=== PATIENT | female | born 1945 | race Caucasian/White ===

== ENCOUNTER 2023-05-17 09:16 | Day surgery (SDC) | payer MEDICARE, OTHER ==
[~2023-05-17 09:16] MED LIST: Ak-Dilate OPHTHALMIC*** 1.065 ML, Cyclogyl 1% OPHTH SOL 1.065 ML, GATIFLOXACIN 0.5% OPH... OP ONE; BETADINE 5% OPHTHALMIC 30 ML OP ONE; Lactated Ringers 1,000 ML IV SCH; NON-FORMULARY ITEM OP ONE; TETRACAINE 0.5% STERI-UNIT SOL OP ONE; cefUROXime sodium 0.005 GM in Sodium Chloride Flush 30 ML*** 0.5 ML IJ ONE
[2023-05-17] MEDS ORDERED: Epinephrine Preservative Free 1 MG/ML IJ ONE (09:17)
[2023-05-17] MEDS ORDERED: Lactated Ringers 1,000 ML IV SCH (10:00)
[2023-05-17] MEDS ORDERED: ACETAZOLAMIDE 250 MG TABLET PO ONE (11:00)
[2023-05-17] MEDS ORDERED: DIPRIVAN 200 MG/20 ML IV ONE (11:00)
[2023-05-17] MEDS ORDERED: Zofran 4 MG/2 ML VIAL IV PRN (11:00)
[2023-05-17] MEDS ORDERED: SUBLIMAZE 250 MCG/5 ML ONE (11:01)
[2023-05-17 11:26] VITALS: RESP 16; TEMP 98
[2023-05-17 11:32] VITALS: O2SAT 98
[2023-05-17 11:36] VITALS: BP 143/73; PULSE 74
== END 2023-05-17 11:50 | disposition home or self-care (01) ==
LOC: SDC 09:16
PROVIDERS: ATTEND Ophthalmology
DX: H25.812 Combined forms of age-related cataract, left eye (principal)
CPT/HCPCS: 99100; C1780; J0171; J2704; J3010; A9270-GY

== ENCOUNTER 2025-05-07 14:37 | Observation (INO) | payer MEDICARE, OTHER ==
[2025-05-07] MEDS ORDERED: TORAdol 30 mg Injection ONE (15:52)
[2025-05-07 15:54] LABS: BASOPHIL % 0.3 % (0.1-1.2); Basophil (Absolute #) 0.02 x10^3/uL (0.01-0.08); Eosinophil (Absolute #) 0.01 x10^3/uL (0.04-0.36); Hematocrit 35.0 % (34.1-44.9); Hemoglobin 11.0 g/dL (11.2-15.7); IMMATURE GRAN # 0.04 x10^3u/L (0.001-0.031); IMMATURE GRAN % 0.6 % (0.001-0.429); Lymphocyte (Absolute #) 0.45 x10^3/uL (1.18-3.74); Mean Corpuscular Hemoglobin 29.4 pg (25.6-32.2); Mean Corpuscular Hgb Concent. 31.4 g/dL (32.2-35.5); Monocyte (Absolute #) 0.40 x10^3/uL (0.24-0.86); NUCLEATED RBC # 0.00 x10^3u/L (0.00-0.012); NUCLEATED RBC % 0.0 % (0.00-0.2); Platelet Count 183 x10^3/uL (182-369); Red Blood Count 3.74 x10^6/uL (3.93-5.22); White Blood Count 7.1 x10^3/uL (3.98-10.04)
--- NOTE | 2025-05-07 15:54 | ERPHSYRPT ---
- History of Present Illness Time Seen by Provider: 05/07/25 15:49 Source: patient Exam Limitations: no limitations Patient Subjective Stated Complaint: pt c/o of seeping lower left leg and right leg starting to swell Triage Nursing Assessment: t was brought to the ER by a friend, tachycardic, denies pain while laying but if touched it is an 8/10, pulses normal, skin n/w/d, this happened last year and had went to the wound center and it healed, denies chest pain, no SOB, doesn't appear to be in any distress Physician History: Patient is a 79-year-old female history of hypertension with a chronic left lower extremity wound presents to our ED for pain to the left lower extremity. Patient states the contralateral side, right lower extremity is at its baseline. Pain rated 8 out of 10. Patient goes to the wound center for left lower extremity chronic wound. She takes aspirin daily. She is not on blood thinners. No chest pain or shortness of breath. No nausea vomiting or diaphoresis. Patient voices no other complaints or concerns at this time. Portions of this note were created with voice recognition technology. There may be grammatical, spelling, punctuation or sound alike errors Timing/Duration: today Severity: moderate Modifying Factors: Improves With: nothing Associated Symptoms: denies symptoms Allergies/Adverse Reactions: No Known Drug Allergies Allergy (Verified 05/07/25 15:02) Home Medications: Dapagliflozin Propanediol [Farxiga] 10 mg PO DAILY 05/07/25 [History] Sacubitril/Valsartan [Entresto 49 mg-51 mg Tablet] 1 tab PO BID 05/07/25 [History] Hx Influenza Vaccination/Date Given: Yes Hx Pneumococcal Vaccination/Date Given: Yes Travel Risk - International Travel Have you traveled outside of the country in past 3 weeks: No - Emerging Infectious Disease Are you exhibiting symptoms associated with any current EIDs: No - Review of Systems All Other Systems: Reviewed and Negative - Past Medical History Pertinent Past Medical History: Yes Cardiac History: Hypertension Other Medical History: swelling legs - Past Surgical History Past Surgical History: Yes Musculoskeletal: Joint Replacement Female Surgical History: Hysterectomy Other Surgical History: right hip replaced - Social History Smoking Status: Former smoker Exposure to second hand smoke: No Drug Use: none - Social Determinants of Health Will the patient participate in the screening: Yes Do you worry about a steady place to live?: No Do you have any problems with any of the following?: No known problems In the past 12 months,have you had to go without utilities?: No Transportation Issues: No Has anyone in your support network made you feel unsafe?: No Have you or anyone in your house had to go w/o enough food: No - Nursing Vital Signs Nursing Vital Signs: Initial Vital Signs Temperature 99.0 F 05/07/25 14:57 Pulse Rate 121 H 05/07/25 14:57 Blood Pressure 132/91 05/07/25 14:57 O2 Sat by Pulse Oximetry 98 05/07/25 14:57 Pain Scale Pain Intensity 10 - Physical Exam General Appearance: no apparent distress, alert Eye Exam: PERRL/EOMI, eyes nml inspection Ears, Nose, Throat Exam: normal ENT inspection, moist mucous membranes Neck Exam: normal inspection, full range of motion Respiratory Exam: normal breath sounds, lungs clear, airway intact, No respiratory distress Cardiovascular Exam: regular rate/rhythm, normal heart sounds, normal peripheral pulses Gastrointestinal/Abdomen Exam: soft, normal bowel sounds, No tenderness, No mass Back Exam: normal inspection, normal range of motion, No CVA tenderness, No vertebral tenderness Extremity Exam: normal inspection, normal range of motion, pelvis stable, other (Left lower extremity is swollen. Positive Homans' sign left lower extremity. There is associated cellulitis and some bruising. No trauma. The involved extremities neurovasc intact distally compartments are soft cap refill less than 2 seconds.) Neurologic Exam: alert, oriented x 3, cooperative, normal mood/affect, sensation nml, No motor deficits Skin Exam: normal color, warm, dry, No rash Lymphatic Exam: No adenopathy SpO2 Interpretation: normal SpO2: 98 O2 Delivery: Room Air - Course Nursing assessment & vital signs reviewed: Yes EKG Interpreted by Me: RATE (113), A-fib - Radiology Ultrasound Exam Venous Lower Extremity Ultrasound: discussed w/radiologist (Research And Development Director ultrasound left lower extremity negative for DVT) Ordered Tests: Active Orders 24 hr Category Date Time Status Up With Assistance ROUTINE Activity 05/07/25 18:12 Active Call Admit Doctor for Orders ON ADMISSION Care 05/07/25 18:12 Active Cardiovascular Tech ROUTINE Care 05/07/25 18:12 Active Code Status Order ROUTINE Care 05/07/25 18:12 Active IV Insertion STAT Care 05/07/25 15:46 Completed Neuro Checks Q4H Care 05/07/25 18:[address] in Observation ROUTINE Care 05/07/25 18:12 Active Telemetry q6h Care 05/07/25 18:12 Active Telemetry q6h Care 05/07/25 18:12 Completed Consistent Carbohydrate Diet 1800 Calorie Diet 05/07/25 Dinner Active LOWER LEG Stat Exams 05/07/25 15:48 Completed VENOUS UNILAT/LIMITED EXTREMIT [US] Stat Exams 05/07/25 15:45 Completed BLOOD CULTURE Stat Lab 05/07/25 17:10 Received CBC W DIFF Stat Lab 05/07/25 15:46 Completed CMP Stat Lab 05/07/25 15:50 Completed CULTURE,URINE Stat Lab 05/07/25 19:30 Received NT PRO BNPII Stat Lab 05/07/25 15:46 Completed TROPONIN Q4H Lab 05/07/25 15:46 Completed TROPONIN Q4H Lab 05/07/25 21:10 Completed TROPONIN Q4H Lab 05/08/25 01:00 Ordered UA W/RFX UR CULTURE Stat Lab 05/07/25 19:30 Completed Pulse Oximetry CONTINUOUS RT 05/07/25 18:12 Completed Transfer Order Routine Transfer 05/07/25 Completed Medication Summary Generic Name Dose Route Start Last Admin Trade Name Freq PRN Reason Stop Dose Admin Acetaminophen 650 mg 05/07/25 18:27 Acetaminophen 325 Mg Tablet PO 06/06/25 18:26 Q4H PRN PRN PAIN, FEVER, HEADACHE Apixaban 5 mg 05/08/25 10:00 Apixaban 2.5 Mg Tablet PO 06/07/25 09:59 BID JOSIAH Metoprolol Tartrate 25 mg 05/07/25 18:27 05/07/25 20:14 Metoprolol Tartrate 25 Mg Tab PO 06/06/25 18:26 25 mg BID JOSIAH Administration Non-Formulary Medication 1 each 05/07/25 18:30 Pharmacy Dose Request: Vancomycin 1 Each IV 06/06/25 18:29 ONCALLTOOR JOSIAH Non-Formulary Medication 1 each 05/07/25 18:27 Pharmacy Dosing Request [facility] 05/07/25 18:28 STAT ONE Non-Formulary Medication 10 mg 05/08/25 10:00 Dapagliflozin Propanediol [Farxiga] PO 06/07/25 09:59 DAILY JOSIAH Ondansetron HCl 4 mg 05/07/25 18:27 Ondansetron Hcl 4 Mg/2 Ml Vial IV 06/06/25 18:26 Q6H PRN PRN NAUSEA/VOMITING Sacubitril/Valsartan tablet 05/07/25 22:00 Sacubitril/Valsartan 1 Tablet Tablet PO 06/06/25 21:59 BID JOSIAH Discontinued Medications Generic Name Dose Route Start Last Admin Trade Name Freq PRN Reason Stop Dose Admin Enoxaparin Sodium 60 mg 05/07/25 16:54 05/07/25 17:14 Enoxaparin Sodium 60 Mg/0.6 Ml Syringe SQ 05/07/25 16:55 60 mg STAT ONE Administration Enoxaparin Sodium Confirm 05/07/25 17:05 Enoxaparin Sodium 80 Mg/0.8 Ml Syringe Administered 05/07/25 17:06 Dose 80 mg SQ .STK-MED ONE Enoxaparin Sodium 40 mg 05/08/25 10:00 Enoxaparin Sodium 40 Mg/0.4 Ml Syringe SQ 06/07/25 09:59 DAILY JOSIAH Vancomycin HCl 1 gm in 200 mls @ 125 mls/hr 05/07/25 16:53 05/07/25 20:14 Vancomycin 1 Gram/200 Ml Bag IV 05/07/25 18:28 125 mls/hr STAT ONE Administration Piperacillin Sod/Tazobactam 100 mls @ 200 mls/hr 05/07/25 16:53 05/07/25 17:14 Sod 3.375 gm/ Sodium Chloride IV 05/07/25 17:22 200 mls/hr STAT STA 200 mls/hr Administration Sodium Chloride Confirm 05/07/25 17:05 Sodium Chloride 0.9% Administered 05/07/25 17:06 Dose 100 mls @ ud .ROUTE .STK-MED ONE Ketorolac Tromethamine 30 mg 05/07/25 15:46 05/07/25 15:55 Ketorolac Tromethamine 30 Mg/Ml Inj IV 05/07/25 15:47 30 mg STAT ONE Administration Ketorolac Tromethamine Confirm 05/07/25 15:52 Ketorolac Tromethamine 30 Mg/Ml Inj Administered 05/07/25 15:53 Dose 30 mg .ROUTE .STK-MED ONE Piperacillin Sod/Tazobactam Sod Confirm 05/07/25 17:05 Piperacillin/Tazobactam Sodium 3.375 Gm Vial Administered 05/07/25 17:06 Dose 3.375 gm IV .STK-MED ONE Lab/Rad Data: Laboratory Result Diagrams 05/07/25 15:46 05/07/25 15:50 Laboratory Results 05/07/25 05/07/25 05/07/25 Range/Units 15:50 15:46 15:46 WBC (3.98-10.04) x10^3/uL RBC (3.93-5.22) x10^6/uL Hgb (11.2-15.7) g/dL Hct (34.1-44.9) % MCV (79.4-94.8) fL MCH (25.6-32.2) pg MCHC (32.2-35.5) g/dL RDW (11.7-14.4) % Plt Count (182-369) x10^3/uL MPV (9.4-12.3) fL Gran % (34.0-71.1) % Immature Gran % (Auto) (0.001-0.429) % Nucleat RBC Rel Count (0.00-0.2) % Eos # (Auto) (0.04-0.36) x10^3/uL Immature Gran # (Auto) (0.001-0.031) x10^3u/L Absolute Lymphs (auto) (1.18-3.74) x10^3/uL Absolute Monos (auto) (0.24-0.86) x10^3/uL Absolute Nucleated RBC (0.00-0.012) x10^3u/L Lymphocytes % (19.3-51.7) % Monocytes % (4.7-12.5) % Eosinophils % (0.7-5.8) % Basophils % (0.1-1.2) % Absolute Granulocytes (1.56-6.13) x10^3/uL Basophils # (0.01-0.08) x10^3/uL Sodium 136 (135-145) mmol/L Potassium 4.6 (3.5-5.1) mmol/L Chloride 105 (98-107) mmol/L Carbon Dioxide 18 L (22-30) mmol/L Anion Gap 17.5 H (5-15) MEQ/L BUN 20 H (7-17) mg/dL Creatinine 1.10 H (0.52-1.04) mg/dL Estimated GFR 51.8 ML/MIN Glucose 110 H (74-106) mg/dL Calcium 10.0 (8.4-10.2) mg/dL Magnesium 1.7 (1.6-2.3) mg/dL Total Bilirubin 0.80 (0.2-1.3) mg/dL AST 26 (14-36) U/L ALT 15 (0-35) U/L Alkaline Phosphatase 42 (38-126) U/L Troponin I (0.000-0.033) ng/mL NT-Pro-B Natriuret Pep (<300) pg/mL Serum Total Protein 7.0 (6.3-8.2) g/dL Albumin 4.3 (3.5-5.0) g/dL TSH 3rd Generation 1.032 (0.470-4.680) mIU/L Slides for Path Review 05/07/25 05/07/25 Range/Units 15:46 15:46 WBC 7.1 (3.98-10.04) x10^3/uL RBC 3.74 L (3.93-5.22) x10^6/uL Hgb 11.0 L (11.2-15.7) g/dL Hct 35.0 (34.1-44.9) % MCV 93.6 (79.4-94.8) fL MCH 29.4 (25.6-32.2) pg MCHC 31.4 L (32.2-35.5) g/dL RDW 15.9 H (11.7-14.4) % Plt Count 183 (182-369) x10^3/uL MPV 11.4 (9.4-12.3) fL Gran % 87.1 H (34.0-71.1) % Immature Gran % (Auto) 0.6 H (0.001-0.429) % Nucleat RBC Rel Count 0.0 (0.00-0.2) % Eos # (Auto) 0.01 L (0.04-0.36) x10^3/uL Immature Gran # (Auto) 0.04 H (0.001-0.031) x10^3u/L Absolute Lymphs (auto) 0.45 L (1.18-3.74) x10^3/uL Absolute Monos (auto) 0.40 (0.24-0.86) x10^3/uL Absolute Nucleated RBC 0.00 (0.00-0.012) x10^3u/L Lymphocytes % 6.3 L (19.3-51.7) % Monocytes % 5.6 (4.7-12.5) % Eosinophils % 0.1 L (0.7-5.8) % Basophils % 0.3 (0.1-1.2) % Absolute Granulocytes 6.20 H (1.56-6.13) x10^3/uL Basophils # 0.02 (0.01-0.08) x10^3/uL Sodium (135-145) mmol/L Potassium (3.5-5.1) mmol/L Chloride (98-107) mmol/L Carbon Dioxide (22-30) mmol/L Anion Gap (5-15) MEQ/L BUN (7-17) mg/dL Creatinine (0.52-1.04) mg/dL Estimated GFR ML/MIN Glucose (74-106) mg/dL Calcium (8.4-10.2) mg/dL Magnesium (1.6-2.3) mg/dL Total Bilirubin (0.2-1.3) mg/dL AST (14-36) U/L ALT (0-35) U/L Alkaline Phosphatase (38-126) U/L Troponin I 0.014 (0.000-0.033) ng/mL NT-Pro-B Natriuret Pep 33750 (<300) pg/mL Serum Total Protein (6.3-8.2) g/dL Albumin (3.5-5.0) g/dL TSH 3rd Generation (0.470-4.680) mIU/L Slides for Path Review YES - Progress Progress: improved Progress Note: Patient is a 79-year-old female history of hypertension with a chronic left lower extremity wound presents to our ED for pain to the left lower extremity. Patient states the contralateral side, right lower extremity is at its baseline. Pain rated 8 out of 10. Patient goes to the wound center for left lower extremity chronic wound. She takes aspirin daily. She is not on blood thinners. No chest pain or shortness of breath. No nausea vomiting or diaphoresis Physical exam reveals cellulitis left lower extremity with associated chronic wound. The wounds appear to be venous stasis ulcers. There is some associated bruising. The involved extremities neurovasc intact distally compartments are soft cap refill less than 2 seconds. No chest pain. However in light of the leg swelling EKG was performed. A-fib was observed on EKG with a rate of 113. Patient does not have a history of A-fib. Lovenox ordered and administered for the A-fib. Left lower extremity cellulitis. Vancomycin and Zosyn administered. Patient was on oral antibiotics within the past 3 months for a left lower extremity infection. UTI. History obtained from patient and a family friend who is at the bedside. Differential diagnosis includes cellulitis, DVT, trauma X-ray of the left lower extremity reviewed and interpreted by Dr. Ibarra. No acute pathology observed. This is a preliminary read. Formal read pending. Patient will require hospitalization for further evaluation and treatment. Plan of care discussed with patient. Patient agrees to admission to [facility] for further evaluation and treatment. Portions of this note were created with voice recognition technology. There may be grammatical, spelling, punctuation or sound alike errors Complexity of problems addressed is moderate acute complicated. No critical care time. Complexity of data reviewed and analyzed is extensive. Test ordered chest reviewed results analyzed and correlated clinically with history and physical exam. Management discussed with hospitalist who accepts admission to observation. Risk of complication and or risk of morbidity/mortality of patient management is high. Patient requires hospitalization for further evaluation and treatment. Vital stable. Time spent admit patient is approximately 20 minutes. Plan of care established for shared decision making. No social determinants of health present to impede follow-up. Portions of this note were created with voice recognition technology. There may be grammatical, spelling, punctuation or sound alike errors 05/07/25 17:[address] Andrade at 5:05 PM. 05/07/25 17:05 Counseled pt/family regarding: lab results, diagnosis, rad results - Departure Departure Disposition: Observation Clinical Impression: Atrial fibrillation, Cellulitis, Leg pain, UTI (urinary tract infection) Condition: Stable Critical Care Time: No
[2025-05-07] MEDS: TORAdol 30 mg Injection IV ONE (15:55)
[2025-05-07 16:00] LABS: Calcium 10.0 mg/dL (8.4-10.2); Carbon Dioxide 18.0 mmol/L (22-30); Creatinine 1 1.1 mg/dL (0.52-1.04); EST GLOMERULAR FILTRATION RATE 51.8 ML/MIN; Glucose 110.0 mg/dL (74-106); Potassium 4.6 mmol/L (3.5-5.1); SGOT/AST 26.0 U/L (14-36); SGPT/ALT 15.0 U/L (0-35); Total Protein 7.0 g/dL (6.3-8.2)
[2025-05-07] MEDS ORDERED: ENOXAPARIN SODIUM SQ ONE (17:05)
[2025-05-07] MEDS ORDERED: PIPERACILLIN/TAZOBACTAM IV ONE (17:05)
[2025-05-07] MEDS: ENOXAPARIN SODIUM SQ ONE (17:14)
[2025-05-07 17:22] LABS: NT PRO BNPII 12300.0 pg/mL (<300); TROPONIN 0.014 ng/mL (0.000-0.033)
--- NOTE | 2025-05-07 17:33 | XRAY ---
Indication: Left leg pain. Two-dimensional sonogram and color Doppler imaging major venous vessels left leg performed. Comparison: None No thrombus seen in the visualized deep venous vessels left leg including greater saphenous vein. Veins demonstrate normal compressibility. Venous waveforms are normal with and without augmentation. Impression: Left leg negative for venous thrombosis. Comment: Preliminary report was given.
--- NOTE | 2025-05-07 17:41 | XRAY ---
CLINICAL HISTORY: pain COMPARISON: None. TECHNIQUE: X-ray images of the left tibia and fibula were obtained in AP (anteroposterior) and lateral projections. FINDINGS: Bone: The visualized tibia and fibula are intact. No evidence of fracture or dislocation. No focal bone lesions are identified. Reduced bone density. Large plantar calcaneal spur. 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 Osteoarthritis changes involve the knee joint. Mild degenerative changes involving the ankle joint. Foci of calcifications are also seen in the soft tissues around the medial malleolus, likely vascular. Soft Tissue: Atherosclerotic linear vascular calcifications are noted Foci of calcification are present in the soft tissues, likely vascular as well. Mild soft tissue swelling is present around the ankle joint. IMPRESSION: 1. No acute fracture or dislocation is seen. 2. Diffuse osteopenia. 3. Osteoarthritis changes involve the knee joint, ankle, and intertarsal joints. 4. Large plantar calcaneal spur. Disclaimer: A subtle bone abnormality or fracture may not be readily apparent on X-rays; thus, clinical correlation and further imaging, including follow-up CT, MRI, or follow-up X-rays, are advised as needed. Electronically Signed by: Jigar Durant MD. (05/07/2025 17:40:36 EST)
--- NOTE | 2025-05-07 18:10 | PCM.HP ---
History of Present Illness - Chief Complaint Chief Complaint: cellulitis/afib Date: 05/07/25 History of Present Illness: is a 79 year old female with a pmhx of HTN, cardiomyopathy, chronic back pain, chf, MT, and chronic wounds to the LLE (currently treated at [facility]) last treatment three weeks prior to presentation. She reports missing recent wound appointments due to the of her during the week of . She completed a course of doxycycline on April 02 without improvement and now presents with worsening pain, swelling, purulent drainage, and erythema of the left lower extremity. She reports associated chill s but denies chest pain, shortness of breath, or palpitations. Patient follows OP with Dr. sEtrada. She states her last echocardiogram was approximately one year ago. On arrival vitals showed a heart rate of 121; EKG showed atrial fibrillation with ventricular rate approximately 113. Telemetry currently shows atrial fibrillation with heart rate ranging [id number]. Exam reveals open wounds to the medial, lateral, and anterior jj of the left lower extremity with surrounding erythema, purulent drainage, significant tenderness to palpation, and 2+ pitting edema. The right lower extremity has 1+ pitting edema. Venous Doppler of the left lower extremity is preliminarily reported as negative for DVT. Left leg X- ray shows no acute abnormality on preliminary read. Labs notable for hemoglobin 11, carbon dioxide 18 with anion gap 17.5, BUN 20, creatinine 1.10 with unknown baseline, BNP 12,300, and normal initial troponin. She received vancomycin, Zosyn, and Lovenox in the emergency department. Cardiology (Dr. Estrada) recommended repeat echocardiogram. She is admitted for management of recurrent infected left lower extremity wounds and atrial fibrillation. - Review of Systems Constitutional: Chills, Weakness Eyes: No Symptoms Ears, Nose, & Throat: No Symptoms Respiratory: No Symptoms Cardiac: Edema (BLE L>R 2+/1+ pitting) Abdominal/Gastrointestinal: No Symptoms Genitourinary Symptoms: No Symptoms Musculoskeletal: Back Pain (chronic) Skin: Cellulitis, Skin Lesions Neurological: No Symptoms Psychological: No Symptoms Endocrine: No Symptoms Hematologic/Lymphatic: No Symptoms Immunological/Allergic: No Symptoms Medications & Allergies Home Medications: Home Medication List Dapagliflozin Propanediol [Farxiga] 10 mg PO DAILY 05/07/25 [History Confirmed 05/07/25] Sacubitril/Valsartan [Entresto 49 mg-51 mg Tablet] 1 tab PO BID 05/07/25 [History Confirmed 05/07/25] Allergies/Adverse Reactions: Allergies Allergy/AdvReac Type Severity Reaction Status Date / Time No Known Drug Allergies Allergy Verified 05/07/25 15:02 - Past Medical History Past Medical History: Yes Cardiac History: Hypertension Comment: swelling legs - Past Surgical History Past Surgical History: Yes Musculskeletal Surgical Hx: Joint Replacement Female Surgical History: Hysterectomy Other Surgical History: right hip replaced Significant Family History: cancer, diabetes - Social History Smoking Status: Former smoker Exposure to second hand smoke: No Alcohol: None Drug Use: none - Social Determinants of Health Will the patient participate in the screening: Yes Do you worry about a steady place to live?: No Do you have any problems with any of the following?: No known problems In the past 12 months,have you had to go without utilities?: No Have you or anyone in your house had to go without enough: No Transportation Issues: No Has anyone in your support network made you feel unsafe?: No - Physical Exam Vital Signs: Vital Signs - 24 hr Temp Pulse BP BP Pulse Ox 05/07/25 17:21 98 05/07/25 17:14 95 05/07/25 17:00 96 05/07/25 16:50 97 05/07/25 16:40 96 05/07/25 16:32 99 05/07/25 16:00 134/69 97 05/07/25 15:30 135/96 72 L 05/07/25 15:00 127/87 98 05/07/25 14:57 99.0 F 121 H 132/91 98 General Appearance: no apparent distress Neurologic Exam: alert, oriented x 3, cooperative Eye Exam: PERRL/EOMI Ears, Nose, Throat Exam: normal ENT inspection Neck Exam: normal inspection Respiratory Exam: normal breath sounds, lungs clear Cardiovascular Exam: irregular Pelvic Exam: not done Rectal Exam: deferred Extremity Exam: swelling (BLE L>R 2+/1+ pitting), tenderness (BLE) Skin Exam: other (LLE with multiple open wounds medial/lateral with surrounding erythema, drainage) Results - Labs Lab/Micro Results: Lab Results-Last 24 Hours 05/07/25 05/07/25 05/07/25 Range/Units 15:46 15:46 15:50 WBC 7.1 (3.98-10.04) x10^3/uL RBC 3.74 L (3.93-5.22) x10^6/uL Hgb 11.0 L (11.2-15.7) g/dL Hct 35.0 (34.1-44.9) % MCV 93.6 (79.4-94.8) fL MCH 29.4 (25.6-32.2) pg MCHC 31.4 L (32.2-35.5) g/dL RDW 15.9 H (11.7-14.4) % Plt Count 183 (182-369) x10^3/uL MPV 11.4 (9.4-12.3) fL Gran % 87.1 H (34.0-71.1) % Immature Gran % (Auto) 0.6 H (0.001-0.429) % Nucleat RBC Rel Count 0.0 (0.00-0.2) % Eos # (Auto) 0.01 L (0.04-0.36) x10^3/uL Immature Gran # (Auto) 0.04 H (0.001-0.031) x10^3u/L Absolute Lymphs (auto) 0.45 L (1.18-3.74) x10^3/uL Absolute Monos (auto) 0.40 (0.24-0.86) x10^3/uL Absolute Nucleated RBC 0.00 (0.00-0.012) x10^3u/L Lymphocytes % 6.3 L (19.3-51.7) % Monocytes % 5.6 (4.7-12.5) % Eosinophils % 0.1 L (0.7-5.8) % Basophils % 0.3 (0.1-1.2) % Absolute Granulocytes 6.20 H (1.56-6.13) x10^3/uL Basophils # 0.02 (0.01-0.08) x10^3/uL Sodium 136 (135-145) mmol/L Potassium 4.6 (3.5-5.1) mmol/L Chloride 105 (98-107) mmol/L Carbon Dioxide 18 L (22-30) mmol/L Anion Gap 17.5 H (5-15) MEQ/L BUN 20 H (7-17) mg/dL Creatinine 1.10 H (0.52-1.04) mg/dL Estimated GFR 51.8 ML/MIN Glucose 110 H (74-106) mg/dL Calcium 10.0 (8.4-10.2) mg/dL Total Bilirubin 0.80 (0.2-1.3) mg/dL AST 26 (14-36) U/L ALT 15 (0-35) U/L Alkaline Phosphatase 42 (38-126) U/L Troponin I 0.014 (0.000-0.033) ng/mL NT-Pro-B Natriuret Pep 88759 (<300) pg/mL Serum Total Protein 7.0 (6.3-8.2) g/dL Albumin 4.3 (3.5-5.0) g/dL - Radiology Impressions Radiology Exams & Impressions: Radiology Procedures Category Date Time Status ECHO W/2D AND DOPPLER [US] Urgent Exams 05/08/25 10:00 Ordered LOWER LEG Stat Exams 05/07/25 15:48 Taken VENOUS UNILAT/LIMITED EXTREMIT [US] Stat Exams 05/07/25 15:45 Taken Assessment/Plan (1) Cellulitis Current Visit: Yes Status: Acute Assessment & Plan: -Continue IV vancomycin and Zosyn. -Obtain blood and wound cultures if not already collected. -Daily wound assessment; document size, drainage, and erythema. -Formal read of ultrasound and X-ray pending. -Podiatry consult -Strict leg elevation. -Case management for re-establishing wound center follow-up at discharge. -Prior doxycycline failure supports need for IV therapy -[facility] Code(s): L03.90 - CELLULITIS, UNSPECIFIED (2) Atrial fibrillation Current Visit: Yes Status: Acute Assessment & Plan: -New onset -Telemetry monitoring - current HR < 110 -Rate control with metoprolol 25mg bid -Cardiology consult -Continue therapeutic anticoagulation with Lovenox; plan transition to Eliquis pending cardiology recommendations. -Treat infection as driver material handler of RVR. -Await echocardiogram for further management guidance Code(s): I48.91 - UNSPECIFIED ATRIAL FIBRILLATION (3) HTN (hypertension) Current Visit: Yes Status: Acute Assessment & Plan: -Continue home regimen as tolerated. Code(s): I10 - ESSENTIAL (PRIMARY) HYPERTENSION (4) Cardiomyopathy Current Visit: Yes Status: Acute Assessment & Plan: -Echo ordered [place] [address] -Continue Entresto -Cardiology consulted appreciate recs -Monitor for volume overload. -Daily weights and intake/output. Code(s): I42.9 - CARDIOMYOPATHY, UNSPECIFIED (5) Normocytic anemia Current Visit: Yes Status: Acute Assessment & Plan: -Hgb stable at 11-Trend -Iron studies Code(s): D64.9 - ANEMIA, UNSPECIFIED (6) Bilateral leg edema Current Visit: Yes Status: Acute Assessment & Plan: -Monitor volume status closely given markedly elevated BNP and cardiomyopathy. -Daily weights, strict I&O, ongoing assessment of respiratory status. -Consider gentle diuresis -Podiatry consulted -Venous doppler pre-valle negative- final read pending -Continue treatment of left leg infection to address inflammatory contributors to edema. -Elevate both lower extremities VTE: lovenox PPI: Protonix Dispo: 1-3 days Code status: Full code Plan of care time spent > 45 mins Code(s): R60.0 - LOCALIZED EDEMA (7) Increased anion gap metabolic acidosis Current Visit: Yes Status: Acute Code(s): E87.29 - OTHER ACIDOSIS (8) HAYDEE (acute kidney injury) Current Visit: Yes Status: Acute Code(s): N17.9 - ACUTE KIDNEY FAILURE, UNSPECIFIED Telemedicine Encounter - Telemedicine Encounter Telemedicine Encounter: "The entirety of this encounter was performed via Telemedicine" This visit was performed using real-time audio and video connection between my location and thepatients locationwith the assistance of a surrogateat the patients location. Written or verbal consent was obtained from the patient/guardian to perform this visit usinguofl [facility]See[facility] Interactivest. [facility] and health centerUgurucine technology. Any patient questions regarding the telemedicine interaction were answered.
[2025-05-07] MEDS ORDERED: PHARMACY RENAL DOSING MC ONE (18:27)
[2025-05-07] MEDS ORDERED: TYLENOL 325 MG PO PRN (18:27)
[2025-05-07] MEDS ORDERED: Zofran 4 MG/2 ML VIAL IV PRN (18:27)
[2025-05-07] MEDS ORDERED: PHARMACY DOSING REQUIRED: VANCOMYCIN IV SCH (18:30)
[2025-05-07 19:23] LABS: Slide Review 1 YES
--- NOTE | 2025-05-07 19:35 | XRAY ---
Indication: Short of breath. Comparison: January 10, 2024 Portable chest inflated and remains clear. Heart now enlarged again with mitral valve calcifications. Bony thorax intact again with osteopenia, degenerative changes, and mild dextroscoliosis. Impression: New cardiomegaly. Negative for acute pneumonic process or CHF.
[2025-05-07 19:38] LABS: Glucose, Urine 500 mg/dL (Negative); Protein,Urine Dip Negative (Negative); RBC 0-2 /HPF (0-5); WBC 0-2 /HPF (0-5)
[2025-05-07] MEDS: VANCOMYCIN 1 GRAM/200 ML BAG 1 GM/200 ML PIGGYBACK IV ONE (20:14)
[2025-05-07] MEDS: Lopressor 25MG Tab PO SCH (20:14)
[2025-05-08 02:22] LABS: BASOPHIL % 0.2 % (0.1-1.2); Basophil (Absolute #) 0.01 x10^3/uL (0.01-0.08); Eosinophil (Absolute #) 0.05 x10^3/uL (0.04-0.36); Hematocrit 30.8 % (34.1-44.9); Hemoglobin 9.6 g/dL (11.2-15.7); IMMATURE GRAN # 0.01 x10^3u/L (0.001-0.031); IMMATURE GRAN % 0.2 % (0.001-0.429); Lymphocyte (Absolute #) 0.61 x10^3/uL (1.18-3.74); Mean Corpuscular Hemoglobin 29.4 pg (25.6-32.2); Mean Corpuscular Hgb Concent. 31.2 g/dL (32.2-35.5); Monocyte (Absolute #) 0.41 x10^3/uL (0.24-0.86); NUCLEATED RBC # 0.00 x10^3u/L (0.00-0.012); NUCLEATED RBC % 0.0 % (0.00-0.2); Platelet Count 142 x10^3/uL (182-369); Red Blood Count 3.27 x10^6/uL (3.93-5.22); White Blood Count 4.3 x10^3/uL (3.98-10.04)
[2025-05-08 02:33] LABS: Calcium 9.1 mg/dL (8.4-10.2); Carbon Dioxide 18.0 mmol/L (22-30); Creatinine 1 1.16 mg/dL (0.52-1.04); EST GLOMERULAR FILTRATION RATE 48.6 ML/MIN; Glucose 129.0 mg/dL (74-106); Potassium 4.0 mmol/L (3.5-5.1); SGOT/AST 25.0 U/L (14-36); SGPT/ALT 13.0 U/L (0-35); Total Protein 6.0 g/dL (6.3-8.2)
--- NOTE | 2025-05-08 05:07 | PCM.NOTE ---
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 She reports missing recent wound appointments due to the of her during the week of . She completed a course of doxycycline on April 02 without improvement and now presents with worsening pain, swelling, purulent drainage, and erythema of the left lower extremity. She reports associated chills but denies chest pain, shortness of breath, or palpitations. Patient follows OP with Dr. Estrada. She states her last echocardiogram was approximately one year ago. On arrival vitals showed a heart rate of 121; EKG showed atrial fibrillation with ventricular rate approximately 113. Telemetry currently shows atrial fibrillation with heart rate ranging [id number]. Exam reveals open wounds to the medial, lateral, and anterior jj of the left lower extremity with surrounding erythema, purulent drainage, significant tenderness to palpation, and 2+ pitting edema. The right lower extremity has 1+ pitting edema. Venous Doppler of the left lower extremity is preliminarily reported as negative for DVT. Left leg X- ray shows no acute abnormality on preliminary read. Labs notable for hemoglobin 11, carbon dioxide 18 with anion gap 17.5, BUN 20, creatinine 1.10 with unknown baseline, BNP 12,300, and normal initial troponin. She received vancomycin, Zosyn, and Lovenox in the emergency department. Cardiology (Dr. Estrada) recommended repeat echocardiogram. She is admitted for management of recurrent infected left lower extremity wounds and atrial fibrillation. 05/08/25: Patient seen at bedside. Reports improvement in left lower extremity pain since compression dressing placed by podiatry. Denies chest pain, dyspnea, palpitations, dizziness, or syncope. Endorses generalized fatigue. No fevers overnight. Expresses emotional distress related to recent of , which contributed to missed wound care follow-ups. Cardiology consult and echo results pending. Continue vanc/zosyn for now pending culture results. Urine culture with Gram - ID, sensitivity pending. - Review of Systems Constitutional: No Symptoms Eyes: No Symptoms Ears, Nose, & Throat: No Symptoms Respiratory: No Symptoms Cardiac: Edema (RLE +1 LLE +2- compression dressing ) Abdominal/Gastrointestinal: No Symptoms Genitourinary Symptoms: No Symptoms Musculoskeletal: No Symptoms Skin: Cellulitis, Skin Lesions Neurological: No Symptoms Psychological: No Symptoms Endocrine: No Symptoms Hematologic/Lymphatic: No Symptoms Immunological/Allergic: No Symptoms Objective Exam General Appearance: no apparent distress Neurologic Exam: alert, oriented x 3, cooperative Skin Exam: other (LLE with compression dressing) Eye Exam: PERRL Ears, Nose, Throat Exam: normal ENT inspection Neck Exam: normal inspection Respiratory Exam: normal breath sounds, lungs clear Cardiovascular Exam: regular rate/rhythm, normal heart sounds Gastrointestinal/Abdomen Exam: soft, normal bowel sounds Extremity Exam: swelling (RLE +1 pitting edema LLE with compression dressing) Back Exam: normal inspection Pelvic Exam: deferred Rectal Exam: deferred Objective Data Vital Signs: Vital Signs - 24 hr Temp Pulse Resp BP BP Pulse Ox 05/08/25 03:00 97.9 F 87 16 97/56 94 L 05/07/25 23:25 98 05/07/25 23:00 99.0 F 80 16 98/54 95 05/07/25 20:00 98 H 05/07/25 19:41 98.7 F 113 H 18 128/70 97 05/07/25 18:21 98.7 F 113 H 18 128/70 97 05/07/25 17:14 95 05/07/25 17:00 96 05/07/25 16:50 97 05/07/25 16:40 96 05/07/25 16:32 99 05/07/25 16:00 134/69 97 05/07/25 15:30 135/96 72 L 05/07/25 15:00 127/87 98 05/07/25 14:57 99.0 F 121 H 132/91 98 Pain Assessment - Last Documented Pain Intensity 3 Pain Scale Used 0-10 Pain Scale Intake and Output: Intake & Output 05/05/25 05/06/25 05/07/25 05/08/25 11:59 11:59 11:59 11:59 Output Total 200 Balance -200 Weight 175 kg Lab Results: Lab Results-Last 24 Hours 05/07/25 05/07/25 05/07/25 Range/Units 15:46 15:46 15:46 WBC 7.1 (3.98-10.04) x10^3/uL RBC 3.74 L (3.93-5.22) x10^6/uL Hgb 11.0 L (11.2-15.7) g/dL Hct 35.0 (34.1-44.9) % MCV 93.6 (79.4-94.8) fL MCH 29.4 (25.6-32.2) pg MCHC 31.4 L (32.2-35.5) g/dL RDW 15.9 H (11.7-14.4) % Plt Count 183 (182-369) x10^3/uL MPV 11.4 (9.4-12.3) fL Gran % 87.1 H (34.0-71.1) % Immature Gran % (Auto) 0.6 H (0.001-0.429) % Nucleat RBC Rel Count 0.0 (0.00-0.2) % Eos # (Auto) 0.01 L (0.04-0.36) x10^3/uL Immature Gran # (Auto) 0.04 H (0.001-0.031) x10^3u/L Absolute Lymphs (auto) 0.45 L (1.18-3.74) x10^3/uL Absolute Monos (auto) 0.40 (0.24-0.86) x10^3/uL Absolute Nucleated RBC 0.00 (0.00-0.012) x10^3u/L Lymphocytes % 6.3 L (19.3-51.7) % Monocytes % 5.6 (4.7-12.5) % Eosinophils % 0.1 L (0.7-5.8) % Basophils % 0.3 (0.1-1.2) % Absolute Granulocytes 6.20 H (1.56-6.13) x10^3/uL Basophils # 0.02 (0.01-0.08) x10^3/uL Sodium (135-145) mmol/L Potassium (3.5-5.1) mmol/L Chloride (98-107) mmol/L Carbon Dioxide (22-30) mmol/L Anion Gap (5-15) MEQ/L BUN (7-17) mg/dL Creatinine (0.52-1.04) mg/dL Estimated GFR ML/MIN Glucose (74-106) mg/dL Calcium (8.4-10.2) mg/dL Magnesium 1.7 (1.6-2.3) mg/dL Total Bilirubin (0.2-1.3) mg/dL AST (14-36) U/L ALT (0-35) U/L Alkaline Phosphatase (38-126) U/L Troponin I 0.014 (0.000-0.033) ng/mL NT-Pro-B Natriuret Pep 15071 (<300) pg/mL Serum Total Protein (6.3-8.2) g/dL Albumin (3.5-5.0) g/dL TSH 3rd Generation (0.470-4.680) mIU/L Urine Color (Yellow) Urine Appearance (Clear) Urine pH (4.6-8.0) Ur Specific [place] (1.005-1.030) Urine Protein (Negative) Urine Glucose (UA) (Negative) mg/dL Urine Ketones (Negative) Urine Blood (Negative) Urine Nitrite (Negative) Urine Bilirubin (Negative) Urine Urobilinogen (0.2) mg/dL Ur Leukocyte Esterase (Negative) U Hyaline Cast (Auto) (0-2) /LPF Urine Microscopic RBC (0-5) /HPF Urine Microscopic WBC (0-5) /HPF Ur Epithelial Cells (None Seen) /HPF Urine Bacteria (None Seen) /HPF Urine Culture Reflexed (NO) Slides for Path Review YES 05/07/25 05/07/25 05/07/25 Range/Units 15:46 15:50 19:30 WBC (3.98-10.04) x10^3/uL RBC (3.93-5.22) x10^6/uL Hgb (11.2-15.7) g/dL Hct (34.1-44.9) % MCV (79.4-94.8) fL MCH (25.6-32.2) pg MCHC (32.2-35.5) g/dL RDW (11.7-14.4) % Plt Count (182-369) x10^3/uL MPV (9.4-12.3) fL Gran % (34.0-71.1) % Immature Gran % (Auto) (0.001-0.429) % Nucleat RBC Rel Count (0.00-0.2) % Eos # (Auto) (0.04-0.36) x10^3/uL Immature Gran # (Auto) (0.001-0.031) x10^3u/L Absolute Lymphs (auto) (1.18-3.74) x10^3/uL Absolute Monos (auto) (0.24-0.86) x10^3/uL Absolute Nucleated RBC (0.00-0.012) x10^3u/L Lymphocytes % (19.3-51.7) % Monocytes % (4.7-12.5) % Eosinophils % (0.7-5.8) % Basophils % (0.1-1.2) % Absolute Granulocytes (1.56-6.13) x10^3/uL Basophils # (0.01-0.08) x10^3/uL Sodium 136 (135-145) mmol/L Potassium 4.6 (3.5-5.1) mmol/L Chloride 105 (98-107) mmol/L Carbon Dioxide 18 L (22-30) mmol/L Anion Gap 17.5 H (5-15) MEQ/L BUN 20 H (7-17) mg/dL Creatinine 1.10 H (0.52-1.04) mg/dL Estimated GFR 51.8 ML/MIN Glucose 110 H (74-106) mg/dL Calcium 10.0 (8.4-10.2) mg/dL Magnesium (1.6-2.3) mg/dL Total Bilirubin 0.80 (0.2-1.3) mg/dL AST 26 (14-36) U/L ALT 15 (0-35) U/L Alkaline Phosphatase 42 (38-126) U/L Troponin I (0.000-0.033) ng/mL NT-Pro-B Natriuret Pep (<300) pg/mL Serum Total Protein 7.0 (6.3-8.2) g/dL Albumin 4.3 (3.5-5.0) g/dL TSH 3rd Generation 1.032 (0.470-4.680) mIU/L Urine Color Yellow (Yellow) Urine Appearance Clear (Clear) Urine pH 5.0 (4.6-8.0) Ur Specific [place] 1.015 (1.005-1.030) Urine Protein Negative (Negative) Urine Glucose (UA) 500 A (Negative) mg/dL Urine Ketones Negative (Negative) Urine Blood Trace (Negative) Urine Nitrite Positive A (Negative) Urine Bilirubin Negative (Negative) Urine Urobilinogen 0.2 (0.2) mg/dL Ur Leukocyte Esterase Negative (Negative) U Hyaline Cast (Auto) 3-5 A (0-2) /LPF Urine Microscopic RBC 0-2 (0-5) /HPF Urine Microscopic WBC 0-2 (0-5) /HPF Ur Epithelial Cells None Seen (None Seen) /HPF Urine Bacteria Moderate A (None Seen) /HPF Urine Culture Reflexed YES (NO) Slides for Path Review 05/07/25 05/08/25 05/08/25 Range/Units 21:10 02:15 02:15 WBC 4.3 (3.98-10.04) x10^3/uL RBC 3.27 L (3.93-5.22) x10^6/uL Hgb 9.6 L (11.2-15.7) g/dL Hct 30.8 L (34.1-44.9) % MCV 94.2 (79.4-94.8) fL MCH 29.4 (25.6-32.2) pg MCHC 31.2 L (32.2-35.5) g/dL RDW 15.9 H (11.7-14.4) % Plt Count 142 L (182-369) x10^3/uL MPV 11.8 (9.4-12.3) fL Gran % 74.7 H (34.0-71.1) % Immature Gran % (Auto) 0.2 (0.001-0.429) % Nucleat RBC Rel Count 0.0 (0.00-0.2) % Eos # (Auto) 0.05 (0.04-0.36) x10^3/uL Immature Gran # (Auto) 0.01 (0.001-0.031) x10^3u/L Absolute Lymphs (auto) 0.61 L (1.18-3.74) x10^3/uL Absolute Monos (auto) 0.41 (0.24-0.86) x10^3/uL Absolute Nucleated RBC 0.00 (0.00-0.012) x10^3u/L Lymphocytes % 14.2 L (19.3-51.7) % Monocytes % 9.5 (4.7-12.5) % Eosinophils % 1.2 (0.7-5.8) % Basophils % 0.2 (0.1-1.2) % Absolute Granulocytes 3.22 (1.56-6.13) x10^3/uL Basophils # 0.01 (0.01-0.08) x10^3/uL Sodium (135-145) mmol/L Potassium (3.5-5.1) mmol/L Chloride (98-107) mmol/L Carbon Dioxide (22-30) mmol/L Anion Gap (5-15) MEQ/L BUN (7-17) mg/dL Creatinine (0.52-1.04) mg/dL Estimated GFR ML/MIN Glucose (74-106) mg/dL Calcium (8.4-10.2) mg/dL Magnesium (1.6-2.3) mg/dL Total Bilirubin (0.2-1.3) mg/dL AST (14-36) U/L ALT (0-35) U/L Alkaline Phosphatase (38-126) U/L Troponin I 0.017 0.014 (0.000-0.033) ng/mL NT-Pro-B Natriuret Pep (<300) pg/mL Serum Total Protein (6.3-8.2) g/dL Albumin (3.5-5.0) g/dL TSH 3rd Generation (0.470-4.680) mIU/L Urine Color (Yellow) Urine Appearance (Clear) Urine pH (4.6-8.0) Ur Specific [place] (1.005-1.030) Urine Protein (Negative) Urine Glucose (UA) (Negative) mg/dL Urine Ketones (Negative) Urine Blood (Negative) Urine Nitrite (Negative) Urine Bilirubin (Negative) Urine Urobilinogen (0.2) mg/dL Ur Leukocyte Esterase (Negative) U Hyaline Cast (Auto) (0-2) /LPF Urine Microscopic RBC (0-5) /HPF Urine Microscopic WBC (0-5) /HPF Ur Epithelial Cells (None Seen) /HPF Urine Bacteria (None Seen) /HPF Urine Culture Reflexed (NO) Slides for Path Review 05/08/25 Range/Units 02:15 WBC (3.98-10.04) x10^3/uL RBC (3.93-5.22) x10^6/uL Hgb (11.2-15.7) g/dL Hct (34.1-44.9) % MCV (79.4-94.8) fL MCH (25.6-32.2) pg MCHC (32.2-35.5) g/dL RDW (11.7-14.4) % Plt Count (182-369) x10^3/uL MPV (9.4-12.3) fL Gran % (34.0-71.1) % Immature Gran % (Auto) (0.001-0.429) % Nucleat RBC Rel Count (0.00-0.2) % Eos # (Auto) (0.04-0.36) x10^3/uL Immature Gran # (Auto) (0.001-0.031) x10^3u/L Absolute Lymphs (auto) (1.18-3.74) x10^3/uL Absolute Monos (auto) (0.24-0.86) x10^3/uL Absolute Nucleated RBC (0.00-0.012) x10^3u/L Lymphocytes % (19.3-51.7) % Monocytes % (4.7-12.5) % Eosinophils % (0.7-5.8) % Basophils % (0.1-1.2) % Absolute Granulocytes (1.56-6.13) x10^3/uL Basophils # (0.01-0.08) x10^3/uL Sodium 135 (135-145) mmol/L Potassium 4.0 (3.5-5.1) mmol/L Chloride 106 (98-107) mmol/L Carbon Dioxide 18 L (22-30) mmol/L Anion Gap 15.1 H (5-15) MEQ/L BUN 22 H (7-17) mg/dL Creatinine 1.16 H (0.52-1.04) mg/dL Estimated GFR 48.6 ML/MIN Glucose 129 H (74-106) mg/dL Calcium 9.1 (8.4-10.2) mg/dL Magnesium 1.7 (1.6-2.3) mg/dL Total Bilirubin 0.60 (0.2-1.3) mg/dL AST 25 (14-36) U/L ALT 13 (0-35) U/L Alkaline Phosphatase 37 L (38-126) U/L Troponin I (0.000-0.033) ng/mL NT-Pro-B Natriuret Pep (<300) pg/mL Serum Total Protein 6.0 L (6.3-8.2) g/dL Albumin 3.4 L (3.5-5.0) g/dL TSH 3rd Generation (0.470-4.680) mIU/L Urine Color (Yellow) Urine Appearance (Clear) Urine pH (4.6-8.0) Ur Specific [place] (1.005-1.030) Urine Protein (Negative) Urine Glucose (UA) (Negative) mg/dL Urine Ketones (Negative) Urine Blood (Negative) Urine Nitrite (Negative) Urine Bilirubin (Negative) Urine Urobilinogen (0.2) mg/dL Ur Leukocyte Esterase (Negative) U Hyaline Cast (Auto) (0-2) /LPF Urine Microscopic RBC (0-5) /HPF Urine Microscopic WBC (0-5) /HPF Ur Epithelial Cells (None Seen) /HPF Urine Bacteria (None Seen) /HPF Urine Culture Reflexed (NO) Slides for Path Review Radiology Exams: Radiology Procedures Category Date Time Status CHEST 1 VIEW (PORTABLE) Stat Exams 05/07/25 18:27 Completed ECHO W/2D AND DOPPLER [US] Urgent Exams 05/08/25 10:00 Ordered LOWER LEG Stat Exams 05/07/25 15:48 Completed VENOUS UNILAT/LIMITED EXTREMIT [US] Stat Exams 05/07/25 15:45 Completed Medications: Medications Generic Name Dose Route Start Last Admin Trade Name Freq PRN Reason Stop Dose Admin Acetaminophen 650 mg 05/07/25 18:27 Acetaminophen 325 Mg Tablet PO 06/06/25 18:26 Q4H PRN PRN PAIN, FEVER, HEADACHE Apixaban 5 mg 05/08/25 10:00 Apixaban 2.5 Mg Tablet PO 06/07/25 09:59 BID COUNTS INCLUDE 234 BEDS AT THE [facility] Metoprolol Tartrate 25 mg 05/07/25 18:27 05/07/25 21:47 Metoprolol Tartrate 25 Mg Tab PO 06/06/25 18:26 Not Given BID COUNTS INCLUDE 234 BEDS AT THE [facility] Non-Formulary Medication 1 each 05/07/25 18:30 Pharmacy Dose Request: Vancomycin 1 Each IV 06/06/25 18:29 ONCALLTOOR JOSIAH Non-Formulary Medication 1 each 05/07/25 18:27 Pharmacy Dosing Request 05/07/25 18:28 STAT ONE Non-Formulary Medication 10 mg 05/08/25 10:00 Dapagliflozin Propanediol [Farxiga] PO 06/07/25 09:59 DAILY JOSIAH Ondansetron HCl 4 mg 05/07/25 18:27 Ondansetron Hcl 4 Mg/2 Ml Vial IV 06/06/25 18:26 Q6H PRN PRN NAUSEA/VOMITING Sacubitril/Valsartan tablet 05/07/25 22:00 Sacubitril/Valsartan 1 Tablet Tablet PO 06/06/25 21:59 BID COUNTS INCLUDE 234 BEDS AT THE [facility] Discontinued Medications Generic Name Dose Route Start Last Admin Trade Name Freq PRN Reason Stop Dose Admin Enoxaparin Sodium 60 mg 05/07/25 16:54 05/07/25 17:14 Enoxaparin Sodium 60 Mg/0.6 Ml Syringe SQ 05/07/25 16:55 60 mg STAT ONE Administration Enoxaparin Sodium Confirm 05/07/25 17:05 Enoxaparin Sodium 80 Mg/0.8 Ml Syringe Administered 05/07/25 17:06 Dose 80 mg SQ .STK-MED ONE Enoxaparin Sodium 40 mg 05/08/25 10:00 Enoxaparin Sodium 40 Mg/0.4 Ml Syringe SQ 06/07/25 09:59 DAILY COUNTS INCLUDE 234 BEDS AT THE [facility] Vancomycin HCl 1 gm in 200 mls @ 125 mls/hr 05/07/25 16:53 05/07/25 20:14 Vancomycin 1 Gram/200 Ml Bag IV 05/07/25 18:28 125 mls/hr STAT ONE Administration Piperacillin Sod/Tazobactam 100 mls @ 200 mls/hr 05/07/25 16:53 05/07/25 17:14 Sod 3.375 gm/ Sodium Chloride IV 05/07/25 17:22 200 mls/hr STAT STA 200 mls/hr Administration Sodium Chloride Confirm 05/07/25 17:05 Sodium Chloride 0.9% Administered 05/07/25 17:06 Dose 100 mls @ ud .ROUTE .STK-MED ONE Ketorolac Tromethamine 30 mg 05/07/25 15:46 05/07/25 15:55 Ketorolac Tromethamine 30 Mg/Ml Inj IV 05/07/25 15:47 30 mg STAT ONE Administration Ketorolac Tromethamine Confirm 05/07/25 15:52 Ketorolac Tromethamine 30 Mg/Ml Inj Administered 05/07/25 15:53 Dose 30 mg .ROUTE .STK-MED ONE Piperacillin Sod/Tazobactam Sod Confirm 05/07/25 17:05 Piperacillin/Tazobactam Sodium 3.375 Gm Vial Administered 05/07/25 17:06 Dose 3.375 gm IV .STK-MED ONE Assessment/Plan (1) Cellulitis Current Visit: Yes Status: Acute Assessment & Plan: (1) Cellulitis Current Visit: Yes Status: Acute Assessment & Plan: -Continue IV vancomycin and Zosyn. -Obtain blood and wound cultures if not already collected. -Daily wound assessment; document size, drainage, and erythema. -Formal read of ultrasound and X-ray pending. -Podiatry consult -Strict leg elevation. -Case management for re-establishing wound center follow-up at discharge. -Prior doxycycline failure supports need for IV therapy -[place] borders 05/08/25: -Wound culture pending -continue vanc/zosyn -Podiatry consulted - compression dressings placed -Venous doppler negative for LLE DVT -XRay negative for acute findings -WBC wnl at 4.3 Code(s): L03.90 - CELLULITIS, UNSPECIFIED (2) Atrial fibrillation Current Visit: Yes Status: Acute Assessment & Plan: -New onset -Telemetry monitoring - current HR < 110 -Rate control with metoprolol 25mg bid -Cardiology consult -Continue therapeutic anticoagulation with Lovenox; plan transition to Eliquis pending cardiology recommendations. 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 -Await echocardiogram for further management guidance 05/08/25: -BP soft this morning with HR controlled in the 80s- Afib on tele -Cardiology consulted- appreciate recs -Eliquis started -echo pending Code(s): I48.91 - UNSPECIFIED ATRIAL FIBRILLATION (3) HTN (hypertension) Current Visit: Yes Status: Acute Assessment & Plan: -Continue home regimen as tolerated. Code(s): I10 - ESSENTIAL (PRIMARY) HYPERTENSION (4) Cardiomyopathy Current Visit: Yes Status: Acute Assessment & Plan: -[place] [address] -Continue Entresto -Cardiology consulted appreciate recs -Monitor for volume overload. -Daily weights and intake/output. Code(s): I42.9 - CARDIOMYOPATHY, UNSPECIFIED (5) Normocytic anemia Current Visit: Yes Status: Acute Assessment & Plan: -Hgb stable at 11-Trend -Iron studies 05/08: -hgb at 9.6 -iron studies pending Code(s): D64.9 - ANEMIA, UNSPECIFIED (6) Bilateral leg edema Current Visit: Yes Status: Acute Assessment & Plan: -Monitor volume status closely given markedly elevated BNP and cardiomyopathy. -Daily weights, strict I&O, ongoing assessment of respiratory status. -Consider gentle diuresis -Podiatry consulted -Venous doppler pre-valle negative- final read pending -Continue treatment of left leg infection to address inflammatory contributors to edema. -Elevate both lower extremities 05/08: -Doppler of LLE negative for DVT elevated creat -Unknown baseline -mild -avoid nephrotoxic agents -monitor renal/lytes CHF -Echo -CXR -[place] [address] -cards consult pending VTE:Eliquis PPI: Protonix Dispo: 1-3 days Code status: Full code Plan of care time spent > 45 mins Code(s): L03.90 - CELLULITIS, UNSPECIFIED (2) Atrial fibrillation Current Visit: Yes Status: Acute Code(s): I48.91 - UNSPECIFIED ATRIAL FIBRIL LATION (3) HTN (hypertension) Current Visit: Yes Status: Acute Code(s): I10 - ESSENTIAL (PRIMARY) HYPERT ENSION (4) Cardiomyopathy Current Visit: Yes Status: Acute Code(s): I42.9 - CARDIOMYOPATHY, UNSPECIFIED (5) Normocytic anemia Current Visit: Yes Status: Acute Code(s): D64.9 - ANEMIA, UNSPECIFIED (6) Bilateral leg edema Current Visit: Yes Status: Acute Code(s): R60.0 - LOCALIZED EDEMA (7) Increased anion gap metabolic acidosis Current Visit: Yes Status: Acute Code(s): E87.29 - OTHER ACIDOSIS (8) HAYDEE (acute kidney injury) Current Visit: Yes Status: Acute Code(s): N17.9 - ACUTE KIDNEY FAILURE, UNSPECIFIED
[2025-05-08] MEDS ORDERED: MEDICATION INTERVENTION MC SCH (08:00)
[2025-05-08] MEDS: Piperacillin/Tazobactam 2.25 GM 2.25 GM in Sodium Chloride 0.9% 100 ML IV SCH (08:51)
[2025-05-08] MEDS ORDERED: NON-FORMULARY ITEM (Dapagliflozin Propanediol [Farxiga] 10 MG Tablet) PO SCH (10:00)
[2025-05-08] MEDS ORDERED: ENOXAPARIN SODIUM SQ SCH (10:00)
[2025-05-08] MEDS: ELIQUIS 2.5 MG TABLET PO SCH (10:17)
[2025-05-08] MEDS: ENTRESTO 49 MG-51 MG TABLET PO SCH (11:19)
[2025-05-08] MEDS: VANCOMYCIN 1 GRAM/200 ML BAG 1 GM/200 ML PIGGYBACK IV SCH ×2 (11:21→11:31)
[2025-05-08] MEDS: PATIENT OWN MEDICATION PO SCH (11:28)
[2025-05-08] MEDS: Lopressor 25MG Tab PO SCH (21:05)
--- NOTE | 2025-05-08 22:21 | PCM.CONS ---
History of Present Illness - Date of Consult Date of Encounter: 05/08/25 (4502) Consulting Director Environmental: JAIME KELLER MD Requesting Provider: Attending Provider: BRET DESAI MD Primary Care Provider: PCP: BRENDA HOLT Consent was: Given for this tele-med encounter - Consult Narrative Reason for Consult: Atrial fibrillation HPI: Patient is a 79 year old female with history of HTN and remote tobacco abuse who presented cellulitis and wound in her LLE. She was also found to be in atrial fibrillation with a mildly rapid ventricular response. She was treated with metoprolol tartrate 25 mg last night with a drop of in her SBP to the 90s. Her metoprolol was held this am and it was restarted at a lower dose this evening at 12.5 mg BID. VR has been under control this am. BP has increased. Patient claims that her ground worker, Dr. Estrada, has treated her with metoprolol, Entresto, Farxiga, and furosemide. Dr. Estrada spoke with Radha Vela NP sharing that she is being treated only with Entresto and Farxiga. Echo today revealed mild concentric LVH, normal LV systolic function with an EF of 55%, and a severely elevated right atrial pressure. Patient has been treated with IVFs and antibiotics. She denies any shortness of breath, chest discomfort, or palpitations. Nursing was not able to confirm medication list with Juany today. cc:: The requesting physician will be sent a copy of the consult. Review of Systems - Review of Systems All systems: all other systems reviewed and were unremarkable (Denies hematochezia, melena, or hematochezia.) - Past Medical History Past Medical History: Yes Neurological History: No Pertinent History ENT History: No Pertinent History Cardiac History: Hypertension Respiratory History: No Pertinent History Endocrine Medical History: No Pertinent History Musculoskelatal History: No Pertinent History GI Medical History: No Pertinent History History: No Pertinent History Pyscho-Social History: No Pertinent History Reproductive Disorders: No Pertinent History Comment: swelling legs - Past Surgical History Past Surgical History: Yes Neuro Surgical History: No Pertinent History Cardiac History: No Pertinent History GI Surgical History: No Pertinent History Genitourinary Surgical Hx: No Pertinent History Musculskeletal Surgical Hx: Joint Replacement Female Surgical History: Hysterectomy Other Surgical History: right hip replaced Significant Family History: cancer, diabetes - Social History Smoking Status: Former smoker Exposure to second hand smoke: No Alcohol: None Drug Use: none - Social Determinants of Health Will the patient participate in the screening: Yes Do you worry about a steady place to live?: No Do you have any problems with any of the following?: No known problems In the past 12 months,have you had to go without utilities?: No Have you or anyone in your house had to go without enough: No Transportation Issues: No Has anyone in your support network made you feel unsafe?: No Does the patient want assistance with any of the above?: No Medications & Allergies Home Medications: Home Medication List Dapagliflozin Propanediol [Farxiga] 10 mg PO DAILY 05/07/25 [History Confirmed 05/07/25] Sacubitril/Valsartan [Entresto 49 mg-51 mg Tablet] 1 tab PO BID 05/07/25 [History Confirmed 05/07/25] Allergies/Adverse Reactions: Allergies Allergy/AdvReac Type Severity Reaction Status Date / Time No Known Drug Allergies Allergy Verified 05/07/25 15:02 Exam - Vitals Vital Signs: Vital Signs - 24 hr Temp Pulse Resp BP Pulse Ox 05/08/25 19:00 99.9 F 84 17 123/68 99 05/08/25 15:00 98.6 F 93 H 16 135/60 97 05/08/25 11:00 97.9 F 87 17 132/75 05/08/25 07:00 98.7 F 89 16 98/55 93 L 05/08/25 03:00 97.9 F 87 16 97/56 94 L 05/07/25 23:25 98 05/07/25 23:00 99.0 F 80 16 98/54 95 General:: no acute distress HEENT: EOMI, JVD (hallfway up to jaw with head of bed elevated 45 degrees) Cardiovascular Exam: normal heart sounds, other (Irregular rate and rhythm), No murmur, No friction rub, No gallop Respiratory Exam: lungs clear SpO2: 99 Oxygen Delivery: Room Air Gastrointestinal/Abdomen Exam: normal bowel sounds Extremity Exam: edema (Trace right ankle and foot. 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, No motor deficits Results Vital Signs: Vital Signs - 24 hr Temp Pulse Resp BP Pulse Ox 05/08/25 19:00 99.9 F 84 17 123/68 99 05/08/25 15:00 98.6 F 93 H 16 135/60 97 05/08/25 11:00 97.9 F 87 17 132/75 05/08/25 07:00 98.7 F 89 16 98/55 93 L 05/08/25 03:00 97.9 F 87 16 97/56 94 L 05/07/25 23:25 98 05/07/25 23:00 99.0 F 80 16 98/54 95 Pain Assessment - Last Documented Pain Intensity 2 Pain Scale Used 0-10 Pain Scale Intake and Output: Intake & Output 05/06/25 05/07/25 05/08/25 05/09/25 11:59 11:59 11:59 11:59 Intake Total 720 700 Output Total 400 550 Balance 320 150 Weight 77.2 kg LAB: I have reviewed the Labs in [email or web address]. TSH 1.032 Troponin-I 0.014, 0.017, 0.014 NT-proBNP 12,300 Radiology Exams: Radiology Procedures Category Date Time Status CHEST 1 VIEW (PORTABLE) Stat Exams 05/07/25 18:27 Completed ECHO W/2D AND DOPPLER [US] Urgent Exams 05/08/25 10:00 Taken LOWER LEG Stat Exams 05/07/25 15:48 Completed VENOUS UNILAT/LIMITED EXTREMIT [US] Stat Exams 05/07/25 15:45 Completed TTE 05/08/2025: 1. Moderately dilated left atrium. Other chamber sizes appear normal. 2. Mild to moderate concentric left ventricular hypertrophy. 3. Normal left ventricular systolic function with an estimated LVEF 55%. Motion of the interventricular septum is suggestive of an underlying bundle branch block. Other wall segments appear to contract normally. 4. Unable to determine the grade of diastolic dysfunction due to the patient's underlying atrial fibrillation. 5. Normal right ventricular systolic function. 6. Mildly dilated ascending thoracic aorta. 7. Mild aortic sclerosis without stenosis. 8. Doppler: Mild mitral and tricuspid regurgitation, trace aortic regurgitation. 9. Moderate pulmonary hypertension with an estimated PA systolic pressure 52 mmHg. 10. Severely elevated right atrial pressure (15 mmHg). 11. No pericardial effusion. CXR (AP) 05/07/2025: New cardiomegaly. Negative for acute pneumonic process or CHF. Venous Doppler Left Lower Extremity 05/07/2025: No evidence of a DVT. Tracing 1 Attestation: I have reviewed this EKG and interpreted as documented below. EKG Narrative: ECG 05/07/2025 at 1507: Atrial fibrillation at 94 bpm. Nonspecific IVCD. PRWP. Multi-Disciplinary Progress Notes: Multi-Disciplinary Progress Notes 05/08/25 22:07 Radiology Note by JAIME KELLER TRANSTHORACIC ECHOCARDIOGRAM 05/08/2025: 1. Moderately dilated left atrium. Other chamber sizes appear normal. 2. Mild to moderate concentric left ventricular hypertrophy. 3. Normal left ventricular systolic function with an estimated LVEF 55%. Motion of the interventricular septum is suggestive of an underlying bundle branch block. Other wall segments appear to contract normally. 4. Unable to determine the grade of diastolic dysfunction due to the patient's underlying atrial fibrillation. 5. Normal right ventricular systolic function. 6. Mildly dilated ascending thoracic aorta. 7. Mild aortic sclerosis without stenosis. 8. Doppler: Mild mitral and tricuspid regurgitation, trace aortic regurgitation. 9. Moderate pulmonary hypertension with an estimated PA systolic pressure 52 mmHg. 10. Severely elevated right atrial pressure (15 mmHg). 11. No pericardial effusion. Jaime Keller MD [facility] Initialized on 05/08/25 22:07 - END OF NOTE 05/08/25 08:20 Pharmacy Note by Jose Wills Pharmacokinetic dosing service 05/08/25 @ 0820 Objective: Patient: Floor: 102-1 Age: 79 yo Serum creatinine: 1.16 mg/dL Height: 65.0 Inches Weight (kg): 79.5 Assessment: IBW (kg): 57.00 Dosing wt(kg): 79.5 Estimated Creatinine clearance (ml/min): 36.5 CRCL method: Cockcroft and Gault using ibw(default). Drug selected: Vancomycin Loading dose (mg): Vd (liters): 55.6 (factor used: 0.7 L/kg) Liu (hr-1): 0.035 Half life (hrs): 19.80 CLvanco= 1.946 L/hr Recommended dose: 1000 mg Interval: 24 hrs Infusion time (hrs): 1 Predicted peak (mcg/mL): 31.1 Predicted trough (mcg/mL): 13.90 Total body weight is being used for vancomycin dosing. Renal function is stable with mildly elevated scr Recommendations: Give Vancomycin 1000 mg q 24 hrs with an expected Cpeak of 31.1 mcg/ml and an expected Ctrough of 13.90 mcg/ml AUC 0-24 /RENITA Data: RENITA 0.5 mcg/mL: AUC/RENITA: 1027.7 RENITA 1.0 mcg/mL: AUC/RENITA: 513.9 --------- RENITA 1.5 mcg/mL: AUC/RENITA: 342.6 RENITA 2.0 mcg/mL: AUC/RENITA: 256.9 Renal dosing of other antibiotics (review renal dosing of other medications and list guidelines here): Thank you for the consult, will continue to follow. Signature: jcb Initialized on 05/08/25 08:20 - END OF NOTE Assessment & Plan (1) Atrial fibrillation Current Visit: Yes Status: Acute Assessment & Plan: Unclear duration as patient is asymptomatic. New diagnosis. Mildly rapid ventricular response at times controlled with metoprolol. Continue metoprolol tartrate 12.5 mg by mouth BID. Plan to change to metoprolol succinate by time of discharge. CHA2DS 2-VASc score = 3-4 places her at a high risk for an embolic ev ent. Agree with Eliquis for systemic anticoagulation. Will need to check with her two pharmacies in the am to determine if she was taking metoprolol prior to admission. Code(s): I48.91 - UNSPECIFIED ATRIAL FIBRILLATION (2) Hypertensive heart disease with acute diastolic congestive heart failure Current Visit: Yes Status: Chronic Assessment & Plan: Evidence of mild to moderate concentric LVH on today's echocardiogram. Elevated CVP on today's echo secondary to IVFs, withdrawal of diruretics, or HFpEF. Need to determine with her two pharmacies in the am if she is on furosemide. Patient gives a history of an ischemic cardiomyopathy being diagnosed by her ground worker 1-2 year ago but she denies any cardiac testing being performed. Will give a single dose of IV furosemide 20 mg IV push in the am. If her LV function has improved, it would make sense that she was on metoprolol. Code(s): I11.0 - HYPERTENSIVE HEART DISEASE WITH HEART FAILURE; I50.31 - ACUTE DIASTOLIC (CONGESTIVE) HEART FAILURE (3) HTN (hypertension) Current Visit: Yes Status: Chronic Assessment & Plan: Borderline low BP overnight after receiving metoprolol 25 mg last night. Agree with lower dose of metoprolol. Code(s): I10 - ESSENTIAL (PRIMARY) HYPERTENSION (4) Cellulitis Current Visit: Yes Status: Chronic Assessment & Plan: with wound. On antibiotics. As per primary team. Code(s): L03.90 - CELLULITIS, UNSPECIFIED - Encounter Encounter: "The entirety of this encounter was performed via Telemedicine using audio and visual " Case discussed with Radha Vela NP. Will follow with you. Jaime Keller MD [facility] [phone]
[2025-05-09 00:36] LABS: Ferritin 96.0 ng/mL (11.1-264)
[2025-05-09 01:53] LABS: Iron 45 ug/dL (37-170); TIBC 204 ug/dL (265-462)
[2025-05-09 04:59] LABS: BASOPHIL % 0.2 % (0.1-1.2); Basophil (Absolute #) 0.01 x10^3/uL (0.01-0.08); Eosinophil (Absolute #) 0.05 x10^3/uL (0.04-0.36); Hematocrit 31.5 % (34.1-44.9); Hemoglobin 9.6 g/dL (11.2-15.7); IMMATURE GRAN # 0.03 x10^3u/L (0.001-0.031); IMMATURE GRAN % 0.7 % (0.001-0.429); Lymphocyte (Absolute #) 0.83 x10^3/uL (1.18-3.74); Mean Corpuscular Hemoglobin 28.8 pg (25.6-32.2); Mean Corpuscular Hgb Concent. 30.5 g/dL (32.2-35.5); Monocyte (Absolute #) 0.56 x10^3/uL (0.24-0.86); NUCLEATED RBC # 0.00 x10^3u/L (0.00-0.012); NUCLEATED RBC % 0.0 % (0.00-0.2); Platelet Count 144 x10^3/uL (182-369); Red Blood Count 3.33 x10^6/uL (3.93-5.22); White Blood Count 4.6 x10^3/uL (3.98-10.04)
--- NOTE | 2025-05-09 05:06 | PCM.NOTE ---
Date and Time: 05/09/25 0507 Subjective Assessment: is a 79 year old female with a pmhx of HTN, cardiomyopathy, chronic back pain, chf, RI, and chronic wounds to the LLE (currently treated at [facility]) last treatment three weeks prior to presentation. She reports missing recent wound appointments due to the of her during the week of . She completed a course of doxycycline on April 02 without improvement and now presents with worsening pain, swelling, purulent drainage, and erythema of the left lower extremity. She reports associated chills but denies chest pain, shortness of breath, or palpitations. Patient follows OP with Dr. Estrada. She states her last echocardiogram was approximately one year ago. On arrival vitals showed a heart rate of 121; EKG showed atrial fibrillation with ventricular rate approximately 113. Telemetry currently shows atrial fibrillation with heart rate ranging [id number]. Exam reveals open wounds to the medial, lateral, and anterior jj of the left lower extremity with surrounding erythema, purulent drainage, significant tenderness to palpation, and 2+ pitting edema. The right lower extremity has 1+ pitting edema. Venous Doppler of the left lower extremity negative for DVT. Left leg X-ray shows no acute abnormality. Labs notable for hemoglobin 11, carbon dioxide 18 with anion gap 17.5, BUN 20, creatinine 1.10 with unknown baseline, BNP 12,300, and normal initial troponin. She received vancomycin, Zosyn, and Lovenox in the emergency department. Cardiology (Dr. Estrada) recommended repeat echocardiogram. She is admitted for management of recurrent infected left lower extremity wounds and atrial fibrillation. Echo revealed mild concentric LVH, normal LV systolic function with an EF of 55%, and a severely elevated right atrial pressure. Ucult with klebsiella and Ecoli, sensitive to Zosyn - plan for transition to oral abx once wound cultures have finalized. 05/08/25: Patient seen at bedside. Reports improvement in left lower extremity pain since compression dressing placed by podiatry. Denies chest pain, dyspnea, palpitations, dizziness, or syncope. Endorses generalized fatigue. No fevers overnight. Expresses emotional distress related to recent of , which contributed to missed wound care follow-ups. Cardiology consult and echo results pending. Continue vanc/zosyn for now pending culture results. Urine culture with Gram - ID, sensitivity pending. 05/09/25: Cardiology was consulted and plan discussed with Dr. Aldana. Metoprolol was decreased to 12.5 mg twice daily with plan to convert to metoprolol succinate at discharge. A single 20 mg dose of IV furosemide was administered; Entresto dosing may be adjusted based on clinical response. Hemodynamics remain stable. Urine culture grew E. coli and Klebsiella, both sensitive to piperacillintazobactam. The patient is currently on vancomycin and piperacillintazobactam for bilateral lower extremity wounds pending final culture results, with plan to transition to oral antibiotics when cultures are finalized. Objective Exam Wound Assessment: Skin/Wound Assessment Wound/Incision Assessment Start: 05/08/25 07:47 Text: Status: Active Freq: Q6H Protocol: Document 05/09/25 02:00 MP (Rec: 05/09/25 03:52 MP [id number]) Wound/Incision Assessment LLL (posterior leg/calf area) Wound Assessment Shift Assessment Wound Type Stasis Ulcer Comment wrapped and unable to assess LLL (Anterior) Wound Assessment Shift Assessment Comment wrapped and unable to assess Wound Photo Photo Taken No Objective Data Vital Signs: Vital Signs - 24 hr Temp Pulse Resp BP Pulse Ox 05/09/25 03:47 99 05/09/25 03:00 98.9 F 81 16 117/67 92 L 05/08/25 23:00 99.8 F 96 H 16 107/63 93 L 05/08/25 20:00 84 05/08/25 19:00 99.9 F 84 17 123/68 99 05/08/25 15:00 98.6 F 93 H 16 135/60 97 05/08/25 11:00 97.9 F 87 17 132/75 05/08/25 07:00 98.7 F 89 16 98/55 93 L Pain Assessment - Last Documented Pain Intensity 2 Pain Scale Used 0-10 Pain Scale Intake and Output: Intake & Output 05/06/25 05/07/25 05/08/25 05/09/25 11:59 11:59 11:59 11:59 Intake Total 720 700 Output Total 400 550 Balance 320 150 Weight 77.2 kg Lab Results: Lab Results-Last 24 Hours 05/08/25 05/08/25 Range/Units 02:15 02:15 Iron 45 (37-170) ug/dL TIBC 204 L (265-462) ug/dL Iron Saturation 22 (20-39) % Ferritin 96.0 (11.1-264) ng/mL Vitamin B12 < 159 L (239-931) pg/mL Folic Acid 4.42 (2.76 - >20) ng/mL Radiology Exams: Radiology Procedures Category Date Time Status CHEST 1 VIEW (PORTABLE) Stat Exams 05/07/25 18:27 Completed ECHO W/2D AND DOPPLER [US] Urgent Exams 05/08/25 10:00 Taken LOWER LEG Stat Exams 05/07/25 15:48 Completed VENOUS UNILAT/LIMITED EXTREMIT [US] Stat Exams 05/07/25 15:45 Completed Medications: Medications Generic Name Dose Route Start Last Admin Trade Name Freq PRN Reason Stop Dose Admin Acetaminophen 650 mg 05/07/25 18:27 Acetaminophen 325 Mg Tablet PO 06/06/25 18:26 Q4H PRN PRN PAIN, FEVER, HEADACHE Apixaban 5 mg 05/08/25 10:00 05/08/25 21:05 Apixaban 2.5 Mg Tablet PO 06/07/25 09:59 5 mg BID JOSIAH Administration Device 1 05/10/25 09:30 Therapuetic Drug Level Monitor Each IJ 05/10/25 09:31 1XONLY ONE Furosemide 20 mg 05/09/25 06:00 Furosemide 20 Mg/Vial IV 05/09/25 06:01 1XONLY ONE Piperacillin Sod/Tazobactam 100 mls @ 200 mls/hr 05/08/25 08:00 05/08/25 23:06 Sod 2.25 gm/ Sodium Chloride IV 06/07/25 07:59 200 mls/hr Q6HT JOSIAH Administration Vancomycin HCl 1 gm in 200 mls @ 125 mls/hr 05/08/25 11:00 05/08/25 11:21 Vancomycin 1 Gram/200 Ml Bag IV 06/07/25 10:59 125 mls/hr DAILY JOSIAH Administration Metoprolol Tartrate 12.5 mg 05/08/25 13:29 05/08/25 21:05 Metoprolol Tartrate 25 Mg Tab PO 06/06/25 18:26 12.5 mg BID JOSIAH Administration Ondansetron HCl 4 mg 05/07/25 18:27 Ondansetron Hcl 4 Mg/2 Ml Vial IV 06/06/25 18:26 Q6H PRN PRN NAUSEA/VOMITING Farxiga 10mg Tablet 1 each 05/08/25 12:00 05/08/25 11:28 PO 06/07/25 11:59 1 each DAILY JOSIAH Administration Sacubitril/Valsartan 1 tablet 05/07/25 22:00 05/08/25 22:56 Sacubitril/Valsartan 1 Tablet Tablet PO 06/06/25 21:59 Not Given BID JOSIAH Discontinued Medications Generic Name Dose Route Start Last Admin Trade Name Freq PRN Reason Stop Dose Admin Enoxaparin Sodium 60 mg 05/07/25 16:54 05/07/25 17:14 Enoxaparin Sodium 60 Mg/0.6 Ml Syringe SQ 05/07/25 16:55 60 mg STAT ONE Administration Enoxaparin Sodium Confirm 05/07/25 17:05 Enoxaparin Sodium 80 Mg/0.8 Ml Syringe Administered 05/07/25 17:06 Dose 80 mg SQ .STK-MED ONE Enoxaparin Sodium 40 mg 05/08/25 10:00 Enoxaparin Sodium 40 Mg/0.4 Ml Syringe SQ 06/07/25 09:59 DAILY JOSIAH Furosemide 20 mg 05/09/25 22:35 Furosemide 20 Mg/Vial IV 05/09/25 22:36 1XONLY ONE Vancomycin HCl 1 gm in 200 mls @ 125 mls/hr 05/07/25 16:53 05/07/25 20:14 Vancomycin 1 Gram/200 Ml Bag IV 05/07/25 18:28 125 mls/hr STAT ONE Administration Piperacillin Sod/Tazobactam 100 mls @ 200 mls/hr 05/07/25 16:53 05/07/25 17:1 4 Sod 3.375 gm/ Sodium Chloride IV 05/07/25 17:22 200 mls/hr STAT STA 200 mls/hr Administration Sodium Chloride Confirm 05/07/25 17:05 Sodium Chloride 0.9% Administered 05/07/25 17:06 Dose 100 mls @ ud .ROUTE .STK-MED ONE Vancomycin HCl 1 gm in 200 mls @ 125 mls/hr 05/08/25 10:00 05/08/25 11:31 Vancomycin 1 Gram/200 Ml Bag IV 06/07/25 09:59 Not Given DAILY JOSIAH Ketorolac Tromethamine 30 mg 05/07/25 15:46 05/07/25 15:55 Ketorolac Tromethamine 30 Mg/Ml Inj IV 05/07/25 15:47 30 mg STAT ONE Administration Ketorolac Tromethamine Confirm 05/07/25 15:52 Ketorolac Tromethamine 30 Mg/Ml Inj Administered 05/07/25 15:53 Dose 30 mg .ROUTE .STK-MED ONE Metoprolol Tartrate 25 mg 05/07/25 18:27 05/08/25 11:19 Metoprolol Tartrate 25 Mg Tab PO 06/06/25 18:26 Not Given BID [facility] Miscellaneous Information 1 each 05/08/25 08:00 Medication Intervention 1 Each Each MC 06/07/25 07:59 .RN TO CHECK JOSIAH Non-Formulary Medication 1 each 05/07/25 18:30 Pharmacy Dose Request: Vancomycin 1 Each IV 06/06/25 18:29 ONCALLTOOR JOSIAH Non-Formulary Medication 1 each 05/07/25 18:27 Pharmacy Dosing Request MC 05/07/25 18:28 STAT ONE Piperacillin Sod/Tazobactam Sod Confirm 05/07/25 17:05 Piperacillin/Tazobactam Sodium 3.375 Gm Vial Administered 05/07/25 17:06 Dose 3.375 gm IV .STK-MED ONE Multi-Disciplinary Progress Notes: Multi-Disciplinary Progress Notes 05/08/25 22:07 Radiology Note by JAIME KELLER TRANSTHORACIC ECHOCARDIOGRAM 05/08/2025: 1. Moderately dilated left atrium. Other chamber sizes appear normal. 2. Mild to moderate concentric left ventricular hypertrophy. 3. Normal left ventricular systolic function with an estimated LVEF 55%. Motion of the interventricular septum is suggestive of an underlying bundle branch block. Other wall segments appear to contract normally. 4. Unable to determine the grade of diastolic dysfunction due to the patient's underlying atrial fibrillation. 5. Normal right ventricular systolic function. 6. Mildly dilated ascending thoracic aorta. 7. Mild aortic sclerosis without stenosis. 8. Doppler: Mild mitral and tricuspid regurgitation, trace aortic regurgitation. 9. Moderate pulmonary hypertension with an estimated PA systolic pressure 52 mmHg. 10. Severely elevated right atrial pressure (15 mmHg). 11. No pericardial effusion. Jaime Keller MD [facility] Initialized on 05/08/25 22:07 - END OF NOTE 05/08/25 08:20 Pharmacy Note by Jose Wills Pharmacokinetic dosing service 05/08/25 @ 0820 Objective: Patient: Floor: 102- Age: 79 yo Serum creatinine: 1.16 mg/dL Height: 65.0 Inches Weight (kg): 79.5 Assessment: IBW (kg): 57.00 Dosing wt(kg): 79.5 Estimated Creatinine clearance (ml/min): 36.5 CRCL method: Cockcroft and Gault using ibw(default). Drug selected: Vancomycin Loading dose (mg): Vd (liters): 55.6 (factor used: 0.7 L/kg) Liu (hr-1): 0.035 Half life (hrs): 19.80 CLvanco= 1.946 L/hr Recommended dose: 1000 mg Interval: 24 hrs Infusion time (hrs): 1 Predicted peak (mcg/mL): 31.1 Predicted trough (mcg/mL): 13.90 Total body weight is being used for vancomycin dosing. Renal function is stable with mildly elevated scr Recommendations: Give Vancomycin 1000 mg q 24 hrs with an expected Cpeak of 31.1 mcg/ml and an expected Ctrough of 13.90 mcg/ml AUC 0-24 /RENITA Data: RENITA 0.5 mcg/mL: AUC/RENITA: 1027.7 RENITA 1.0 mcg/mL: AUC/RENITA: 513.9 --------- RENITA 1.5 mcg/mL: AUC/RENITA: 342.6 RENITA 2.0 mcg/mL: AUC/RENITA: 256.9 Renal dosing of other antibiotics (review renal dosing of other medications and list guidelines here): Thank you for the consult, will continue to follow. Signature: jcb Initialized on 05/08/25 08:20 - END OF NOTE Assessment/Plan (1) Cellulitis Current Visit: Yes Status: Chronic Assessment & Plan: -Continue IV vancomycin and Zosyn. -Obtain blood and wound cultures if not already collected. -Daily wound assessment; document size, drainage, and erythema. -Formal read of ultrasound and X-ray pending. -Podiatry consult -Strict leg elevation. -Case management for re-establishing wound center follow-up at discharge. -Prior doxycycline failure supports need for IV therapy -[place] borders 05/08/25: -Wound culture pending -continue vanc/zosyn -Podiatry consulted - compression dressings placed -Venous doppler negative for LLE DVT -XRay negative for acute findings -WBC wnl at 4.3 05/09: -WBC remains normal at 4.6 -lasix IV at 20mg x 1 dose today -LLE with compression dressing -Wound and blood cultures pending -Continue Vanc and zosyn for now pending culture results with plans to transition to oral regimen Code(s): L03.90 - CELLULITIS, UNSPECIFIED UTI -UA suspicious for UTI - grew klebsiella and ecoli on culture- currently on Zosyn which is sensitive. Wound culture pending for BLE- will transition to oral once final cultures are back (2) Atrial fibrillation Current Visit: Yes Status: Acute Assessment & Plan: -New onset -Telemetry monitoring - current HR < 110 -Rate control with metoprolol 25mg bid -Cardiology consult -Continue therapeutic anticoagulation with Lovenox; plan transition to Eliquis pending cardiology recommendations. 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 -Await echocardiogram for further management guidance 05/08/25: -BP soft this morning with HR controlled in the 80s- Afib on tele -Cardiology consulted- appreciate recs -Eliquis started -echo pending 05/09: -Discussed case with Dr. Aldana and reviewed note- agree with plan for lasix 20mg IV x 1 today, continue metoprolol at 12.5mg bid - there is question as to if patient is currently on metoprolol prior to admission - Echo reviewed and showed mild concentric LVH, normal LV systolic function with an EF of 55%, and a severely elevated right atrial pressure. -CHA2DS 2-VASc score = 3-4 places her at a high risk for an embolic event - continue eliquis -Cardiology following with plans to change metoprolol to succinate prior to dc - agree with plan Code(s): I48.91 - UNSPECIFIED ATRIAL FIBRILLATION (3) HTN (hypertension) Current Visit: Yes Status: Acute Assessment & Plan: -Continue home regimen as tolerated. Code(s): I10 - ESSENTIAL (PRIMARY) HYPERTENSION (4) Cardiomyopathy Current Visit: Yes Status: Acute Assessment & Plan: -E[place] ordered [place] [address] -Continue Entresto -Cardiology consulted appreciate recs -Monitor for volume overload. -Daily weights and intake/output. 05/09: -Cardiology following see plan above -Echo with mild concentric LVH, normal LV systolic function with an EF of 55%, and a severely elevated right atrial pressure. -continue entresto Code(s): I42.9 - CARDIOMYOPATHY, UNSPECIFIED (5) Normocytic anemia Current Visit: Yes Status: Acute Assessment & Plan: -Hgb stable at 11-Trend -Iron studies 05/08: -hgb at 9.6 -iron studies pending 05/09 -Hgb stable att 9.6 -Iron studies reviewed with sat at 22- will add ferrous sulfate Code(s): D64.9 - ANEMIA, UNSPECIFIED (6) Bilateral leg edema Current Visit: Yes Status: Acute Assessment & Plan: -Monitor volume status closely given markedly elevated BNP and cardiomyopathy. -Daily weights, strict I&O, ongoing assessment of respiratory status. -Consider gentle diuresis -Podiatry consulted -Venous doppler pre-valle negative- final read pending -Continue treatment of left leg infection to address inflammatory contributors to edema. -Elevate both lower extremities 05/08: -Doppler of LLE negative for DVT elevated creat -Unknown baseline -mild -avoid nephrotoxic agents -monitor renal/lytes 05/09: -Creat reviewed and improved at 1.09 -monitor renal/lyted daily CHF -Echo -CXR -[place] [id number] -cards consult pending 05/09: -Echo as stated above -Continue home meds` -Lasix 20mg today -CXR with no acute findings VTE:Eliquis PPI: Protonix Dispo: 1-3 days Code status: Full code Plan of care time spent > 45 mins Code(s): L03.90 - CELLULITIS, UNSPECIFIED (2) Atrial fibrillation Current Visit: Yes Status: Acute Code(s): I48.91 - UNSPECIFIED ATRIAL FIBRILLATION (3) HTN (hypertension) Current Visit: Yes Status: Chronic Code(s): I10 - ESSENTIAL (PRIMARY) HYPERTENSION (4) Cardiomyopathy Current Visit: Yes Status: Acute Code(s): I42.9 - CARDIOMYOPATHY, UNSPECIFIED (5) Normocytic anemia Current Visit: Yes Status: Acute Code(s): D64.9 - ANEMIA, UNSPECIFIED (6) Bilateral leg edema Current Visit: Yes Status: Acute Code(s): R60.0 - LOCALIZED EDEMA (7) Increased anion gap metabolic acidosis Current Visit: Yes Status: Acute Code(s): E87.29 - OTHER ACIDOSIS (8) HAYDEE (acute kidney injury) Current Visit: Yes Status: Acute Code(s): N17.9 - ACUTE KIDNEY FAILURE, UNSPECIFIED (9) UTI (urinary tract infection) Current Visit: Yes Status: Acute Code(s): N39.0 - URINARY TRACT INFECTION, SITE NOT SPECIFIED
[2025-05-09 05:13] LABS: Calcium 8.6 mg/dL (8.4-10.2); Carbon Dioxide 19.0 mmol/L (22-30); Creatinine 1 1.09 mg/dL (0.52-1.04); EST GLOMERULAR FILTRATION RATE 52.0 ML/MIN; Glucose 96.0 mg/dL (74-106); Potassium 3.7 mmol/L (3.5-5.1); SGOT/AST 20.0 U/L (14-36); SGPT/ALT 11.0 U/L (0-35); Total Protein 5.8 g/dL (6.3-8.2)
[2025-05-09] MEDS: Lasix 20 MG/2 ML IV ONE (05:36)
[2025-05-09] MEDS: FEOSOL 325 MG PO SCH (09:24)
[2025-05-09 11:34] VITALS: RESP 16
[2025-05-09] MEDS: Toprol-Xl 25MG Tablets PO SCH (12:07)
--- NOTE | 2025-05-09 12:24 | PCM.NOTE ---
Date and Time: 05/09/25 1221 Subjective Assessment: She denies any palpitations, shortness of breath, chest pain. Good urine output after IV furosemide overnight. Eager to get home. OBJECTIVE: [facility] pharmacy confirmed that patient was on furosemide 40 mg BID and metoprolol succinate 50 mg daily at home. Exam General:: no acute distress HEENT: EOMI, No JVD (Sitting up on side of bed.) Cardiovascular: s1 s2 (Normal), irregular, No murmur, No friction rub, No gallop Respiratory:: normal breath sounds O2 Delivery: Room Air Abdominal: active bowel sounds x 4 Extremity Exam: edema (1+ right pedal and ankle edema. 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, No motor deficits Objective Data Vital Signs: Vital Signs - 24 hr Temp Pulse Resp BP Pulse Ox 05/09/25 11:00 98.9 F 92 H 16 129/70 99 05/09/25 07:00 98.4 F 74 18 115/73 95 05/09/25 03:47 99 05/09/25 03:00 98.9 F 81 16 117/67 92 L 05/08/25 23:00 99.8 F 96 H 16 107/63 93 L 05/08/25 20:00 84 05/08/25 19:00 99.9 F 84 17 123/68 99 05/08/25 15:00 98.6 F 93 H 16 135/60 97 Pain Assessment - Last Documented Pain Intensity 2 Pain Scale Used 0-10 Pain Scale Intake and Output: Intake & Output 05/07/25 05/08/25 05/09/25 05/10/25 11:59 11:59 11:59 11:59 Intake Total 720 940 Output Total 400 550 Balance 320 390 Weight 77.2 kg 80.1 kg LAB: I have reviewed the Labs in [employer] Lab Results: Lab Results-Last 24 Hours 05/08/25 05/08/25 05/09/25 Range/Units 02:15 02:15 04:30 WBC 4.6 (3.98-10.04) x10^3/uL RBC 3.33 L (3.93-5.22) x10^6/uL Hgb 9.6 L (11.2-15.7) g/dL Hct 31.5 L (34.1-44.9) % MCV 94.6 (79.4-94.8) fL MCH 28.8 (25.6-32.2) pg MCHC 30.5 L (32.2-35.5) g/dL RDW 16.2 H (11.7-14.4) % Plt Count 144 L (182-369) x10^3/uL MPV 11.5 (9.4-12.3) fL Gran % 67.5 (34.0-71.1) % Immature Gran % (Auto) 0.7 H (0.001-0.429) % Nucleat RBC Rel Count 0.0 (0.00-0.2) % Eos # (Auto) 0.05 (0.04-0.36) x10^3/uL Immature Gran # (Auto) 0.03 (0.001-0.031) x10^3u/L Absolute Lymphs (auto) 0.83 L (1.18-3.74) x10^3/uL Absolute Monos (auto) 0.56 (0.24-0.86) x10^3/uL Absolute Nucleated RBC 0.00 (0.00-0.012) x10^3u/L Lymphocytes % 18.2 L (19.3-51.7) % Monocytes % 12.3 (4.7-12.5) % Eosinophils % 1.1 (0.7-5.8) % Basophils % 0.2 (0.1-1.2) % Absolute Granulocytes 3.09 (1.56-6.13) x10^3/uL Basophils # 0.01 (0.01-0.08) x10^3/uL Sodium (135-145) mmol/L Potassium (3.5-5.1) mmol/L Chloride (98-107) mmol/L Carbon Dioxide (22-30) mmol/L Anion Gap (5-15) MEQ/L BUN (7-17) mg/dL Creatinine (0.52-1.04) mg/dL Estimated GFR ML/MIN Glucose (74-106) mg/dL Calcium (8.4-10.2) mg/dL Iron 45 (37-170) ug/dL TIBC 204 L (265-462) ug/dL Iron Saturation 22 (20-39) % Ferritin 96.0 (11.1-264) ng/mL Total Bilirubin (0.2-1.3) mg/dL AST (14-36) U/L ALT (0-35) U/L Alkaline Phosphatase (38-126) U/L Serum Total Protein (6.3-8.2) g/dL Albumin (3.5-5.0) g/dL Vitamin B12 < 159 L (239-931) pg/mL Folic Acid 4.42 (2.76 - >20) ng/mL 05/09/25 Range/Units 04:30 WBC (3.98-10.04) x10^3/uL RBC (3.93-5.22) x10^6/uL Hgb (11.2-15.7) g/dL Hct (34.1-44.9) % MCV (79.4-94.8) fL MCH (25.6-32.2) pg MCHC (32.2-35.5) g/dL RDW (11.7-14.4) % Plt Count (182-369) x10^3/uL MPV (9.4-12.3) fL Gran % (34.0-71.1) % Immature Gran % (Auto) (0.001-0.429) % Nucleat RBC Rel Count (0.00-0.2) % Eos # (Auto) (0.04-0.36) x10^3/uL Immature Gran # (Auto) (0.001-0.031) x10^3u/L Absolute Lymphs (auto) (1.18-3.74) x10^3/uL Absolute Monos (auto) (0.24-0.86) x10^3/uL Absolute Nucleated RBC (0.00-0.012) x10^3u/L Lymphocytes % (19.3-51.7) % Monocytes % (4.7-12.5) % Eosinophils % (0.7-5.8) % Basophils % (0.1-1.2) % Absolute Granulocytes (1.56-6.13) x10^3/uL Basophils # (0.01-0.08) x10^3/uL Sodium 135 (135-145) mmol/L Potassium 3.7 (3.5-5.1) mmol/L Chloride 107 (98-107) mmol/L Carbon Dioxide 19 L (22-30) mmol/L Anion Gap 13.2 (5-15) MEQ/L BUN 18 H (7-17) mg/dL Creatinine 1.09 H (0.52-1.04) mg/dL Estimated GFR 52.0 ML/MIN Glucose 96 (74-106) mg/dL Calcium 8.6 (8.4-10.2) mg/dL Iron (37-170) ug/dL TIBC (265-462) ug/dL Iron Saturation (20-39) % Ferritin (11.1-264) ng/mL Total Bilirubin 0.40 (0.2-1.3) mg/dL AST 20 (14-36) U/L ALT 11 (0-35) U/L Alkaline Phosphatase 36 L (38-126) U/L Serum Total Protein 5.8 L (6.3-8.2) g/dL Albumin 3.2 L (3.5-5.0) g/dL Vitamin B12 (239-931) pg/mL Folic Acid (2.76 - >20) ng/mL Radiology Exams: Radiology Procedures Category Date Time Status CHEST 1 VIEW (PORTABLE) Stat Exams 05/07/25 18:27 Completed ECHO W/2D AND DOPPLER [US] Urgent Exams 05/08/25 10:00 Taken LOWER LEG Stat Exams 05/07/25 15:48 Completed VENOUS UNILAT/LIMITED EXTREMIT [US] Stat Exams 05/07/25 15:45 Completed TTE 05/08/2025: 1. Moderately dilated left atrium. Other chamber sizes appear normal. 2. Mild to moderate concentric left ventricular hypertrophy. 3. Normal left ventricular systolic function with an estimated LVEF 55%. Motion of the interventricular septum is suggestive of an underlying bundle branch block. Other wall segments appear to contract normally. 4. Unable to determine the grade of diastolic dysfunction due to the patient's underlying atrial fibrillation. 5. Normal right ventricular systolic function. 6. Mildly dilated ascending thoracic aorta. 7. Mild aortic sclerosis without stenosis. 8. Doppler: Mild mitral and tricuspid regurgitation, trace aortic regurgitation. 9. Moderate pulmonary hypertension with an estimated PA systolic pressure 52 mmHg. 10. Severely elevated right atrial pressure (15 mmHg). 11. No pericardial effusion. CXR (AP) 05/07/2025: New cardiomegaly. Negative for acute pneumonic process or CHF. Venous Doppler Left Lower Extremity 05/07/2025: No evidence of a DVT. Tracing 1 Attestation: I have reviewed this EKG and interpreted as documented below. Tracing 2 Attestation: I have reviewed this EKG and interpreted as documented below. EKG Narrative: ECG 05/07/2025 at 1507: Atrial fibrillation at 94 bpm. Nonspecific IVCD. PRWP. Multi-Disciplinary Progress Notes: Multi-Disciplinary Progress Notes 05/08/25 22:07 Radiology Note by XU KELLER TRANSTHORACIC ECHOCARDIOGRAM 05/08/2025: 1. Moderately dilated left atrium. Other chamber sizes appear normal. 2. Mild to moderate concentric left ventricular hypertrophy. 3. Normal left ventricular systolic function with an estimated LVEF 55%. Motion of the interventricular septum is suggestive of an underlying bundle branch block. Other wall segments appear to contract normally. 4. Unable to determine the grade of diastolic dysfunction due to the patient's underlying atrial fibrillation. 5. Normal right ventricular systolic function. 6. Mildly dilated ascending thoracic aorta. 7. Mild aortic sclerosis without stenosis. 8. Doppler: Mild mitral and tricuspid regurgitation, trace aortic regurgitation. 9. Moderate pulmonary hypertension with an estimated PA systolic pressure 52 mmHg. 10. Severely elevated right atrial pressure (15 mmHg). 11. No pericardial effusion. Xu Keller MD [facility] Initialized on 05/08/25 22:07 - END OF NOTE Assessment & Plan (1) Atrial fibrillation Current Visit: Yes Status: Acute Assessment & Plan: Asymptomatic. Unclear duration. VR controlled on metoprolol. Her normal dose was resumed this am. On systemic anticoagulation with Eliquis. 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 Mahamed Estrada. Code(s): I48.91 - UNSPECIFIED ATRIAL FIBRILLATION (2) Hypertensive heart disease with acute diastolic congestive heart failure Current Visit: Yes Status: Chronic Assessment & Plan: Volume overload yesterday was secondary to IV fluids + withholding of furosemide. Diuresed well with IV furosemide overnight. Near euvolemic state. OK for discharge from cardiac standpoint. 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 Mahamed Estrada. Code(s): I11.0 - HYPERTENSIVE HEART DISEASE WITH HEART FAILURE; I50.31 - ACUTE DIASTOLIC (CONGESTIVE) HEART FAILURE (3) HTN (hypertension) Current Visit: Yes Status: Chronic Assessment & Plan: Well controlled. No additional borderline low readings. Tolerated metoprolol. Code(s): I10 - ESSENTIAL (PRIMARY) HYPERTENSION (4) Cellulitis Current Visit: Yes Status: Chronic Assessment & Plan: With LLE wound. As per primary team. Code(s): L03.90 - CELLULITIS, UNSPECIFIED - Encounter Encounter: The entirety of this encounter was performed via Telemedicine using audio and visual. Permission granted by patient for this type of encounter. Case discussed with Radha Vela NP. Xu Keller MD [facility] [phone]
[2025-05-09] MEDS: Vitamin B-12 500 MCG PO SCH (12:57)
--- NOTE | 2025-05-09 13:00 | PCM.DS ---
Discharge Summary Date of Admission: 05/07/25 17:31 Date of Discharge: 05/09/25 Admitting Physician: BRET DESAI MD Consults: Consults on Case 05/07/25 17:33 Consult Cardiology ROUTINE 05/07/25 18:27 Consult Podiatry ROUTINE Primary Care Provider: BRENDA HOLT Allergies Allergies No Known Drug Allergies Allergy (Verified 05/07/25 15:02) Hospital Summary - Hospital Course Hospital Course: Ms. Miles is a 80 year old female with a pmhx of hypertension, cardiomyopathy, chronic heart failure, prior myocardial infarction, and chronic left lower extremity wounds who presented 05/07/25 with worsening pain, swelling, and purulent drainage from the left lower leg after missing wound-care appointments around the time of her husbands recent . On arrival, she was tachycardic with a heart rate of 121 bpm, and EKG showed new-onset atrial fibrillation with a ventricular rate around 113 bpm. She reported chills but denied chest pain, dyspnea, or palpitations. On exam, she had multiple open wounds over the medial, lateral, and anterior aspects of the left jj with erythema, purulent drainage, marked tenderness, and 2+ pitting edema. The right lower extremity had 1+ pitting edema. Initial labs showed hemoglobin 11, bicarbonate 18 with an anion gap of 17.5, BUN 20 , creatinine 1.10 (baseline unknown), and a markedly elevated BNP of 12,300 . Troponin was normal and white blood cell count remained within normal range throughout her stay (4.3 -4.6). Imaging included a left leg X-ray with no acute osseous abnormality and a venous Doppler of the left lower extremity that was negative for DVT. A chest X-ray on 05/09/25 showed no acute cardiopulmonary process. She was started on IV vancomycin and piperacillintazobactam (Zosyn) due to the severity of the cellulitis, purulent drainage, and prior failure of outpatient doxycycline. Podiatry was consulted and applied compression dressings, after which the patient reported significant improvement in left leg pain and swelling. Wound culture is currently growing a Gram-negative organism, with final identification and sensitivities still pending at the time of discharge. Urine culture returned positive for E. coli and Klebsiella aerogenes, both sensitive to levofloxacin. Given this susceptibility profile and concern for Gram-negative involvement of the wound as well, discussion had with podiatry (Dr. Lui) and the decision was made to discharge her on oral levofloxacin to provide ongoing coverage. Podiatry will follow her as an outpatient, and the final wound culture results will be reviewed at that appointment; antibiotic therapy will be adjusted if final sensitivities indicate a need for change. Blood cultures remained negative. Cardiology was consulted for new-onset atrial fibrillation and evaluation of her cardiomyopathy and elevated BNP. Echo showed mild concentric LV hypertrophy, preserved LV systolic function with an EF of 55%, and severely elevated right atrial pressure, consistent with chronic right-sided volume burden rather than new systolic dysfunction. She received a single dose of IV furosemide 20 mg with improvement in edema and no hemodynamic compromise and her home lasix at 40mg bid was resumed. On 05/08/25, during cardiology reevaluation, the patient informed staff that at home she takes metoprolol succinate 50 mg daily and furosemide (Lasix) 40 mg twice daily. After reviewing her clinical status, echocardiogram, and home regimen, Dr. Hooker recommended continuing metoprolol succinate at 50 mg daily, continuing Lasix 40 mg twice daily, and maintaining all other home cardiac medications, including Entresto. Eliquis was added for stroke prevention in the setting of atrial fibrillation. The patient confirmed that she can afford Eliquis. Cardiology cleared her for discharge with close outpatient follow-up with her agricultural crop farm manager. Her hemoglobin dropped from 11 to 9.6 but remained stable thereafter. Iron studies showed iron saturation at 20%, consistent with iron deficiency. Vitamin B12 level returned <159 pg/mL, indicating B12 deficiency as an additional contributor to her normocytic anemia. She was started on iron supplementation and B12 replacement was arranged for outpatient continuation. Renal function remained stable, with creatinine improving slightly from 1.10 to 1.09 despite antibiotics and diuresis. By discharge, she reported significantly improved left leg pain and swelling, no chest pain or shortness of breath, and rate-controlled atrial fibrillation. She expressed a clear preference to continue wound care locally with podiatry and understood the importance of following up for her heart rhythm, anemia, renal function, and wounds. She remains understandably emotionally affected by her recent loss but is oriented, engaged, and agrees with the discharge plan. [facility] has been set up to aid with compression dressings and wound care. Discharge Note New Diagnosis: Cellulitis/Afib new onset New Medications: levofloxacin 500 mg by mouth once daily for 7 days for treatment of E. coli and Klebsiella aerogenes UTI and Gram-negative wound infection. Current eGFR 52 mL/min; no renal dose adjustment required at this time. Antibiotic regimen to be reassessed by podiatry once final wound culture sensitivities are available. B12 2000 mcg daily, ferrous sulfate 325mg daily, Eliquis 5mg bid Follow Up: Natalie/Podiatry Dr Lui Results pending: Wound Culture I spent 45 minutes [id number] with the patient on the day of discharge performing discharge exam, discussing hospital stay and discharge instructions with patient and caregivers, preparation of discharge records, prescriptions & referral forms and addressing any questions/concerns the patient had as documented above. - Vitals & Intake/Output Vital Signs: Vital Signs Temperature 98.9 F 05/09/25 11:00 Pulse Rate 92 H 05/09/25 11:00 Respiratory Rate 16 05/09/25 11:00 Blood Pressure 129/70 05/09/25 11:00 O2 Sat by Pulse Oximetry 99 05/09/25 11:00 Intake & Output: Intake & Output 05/07/25 05/08/25 05/09/25 05/10/25 11:59 11:59 11:59 11:59 Intake Total 720 940 Output Total 400 550 Balance 320 390 Weight 77.2 kg 80.1 kg - Lab Result Diagrams: 05/09/25 04:30 05/09/25 04:30 Lab Results-Last 24 Hrs: Lab Results-Last 24 Hours 05/08/25 05/08/25 05/09/25 Range/Units 02:15 02:15 04:30 WBC 4.6 (3.98-10.04) x10^3/uL RBC 3.33 L (3.93-5.22) x10^6/uL Hgb 9.6 L (11.2-15.7) g/dL Hct 31.5 L (34.1-44.9) % MCV 94.6 (79.4-94.8) fL MCH 28.8 (25.6-32.2) pg MCHC 30.5 L (32.2-35.5) g/dL RDW 16.2 H (11.7-14.4) % Plt Count 144 L (182-369) x10^3/uL MPV 11.5 (9.4-12.3) fL Gran % 67.5 (34.0-71.1) % Immature Gran % (Auto) 0.7 H (0.001-0.429) % Nucleat RBC Rel Count 0.0 (0.00-0.2) % Eos # (Auto) 0.05 (0.04-0.36) x10^3/uL Immature Gran # (Auto) 0.03 (0.001-0.031) x10^3u/L Absolute Lymphs (auto) 0.83 L (1.18-3.74) x10^3/uL Absolute Monos (auto) 0.56 (0.24-0.86) x10^3/uL Absolute Nucleated RBC 0.00 (0.00-0.012) x10^3u/L Lymphocytes % 18.2 L (19.3-51.7) % Monocytes % 12.3 (4.7-12.5) % Eosinophils % 1.1 (0.7-5.8) % Basophils % 0.2 (0.1-1.2) % Absolute Granulocytes 3.09 (1.56-6.13) x10^3/uL Basophils # 0.01 (0.01-0.08) x10^3/uL Sodium (135-145) mmol/L Potassium (3.5-5.1) mmol/L Chloride (98-107) mmol/L Carbon Dioxide (22-30) mmol/L Anion Gap (5-15) MEQ/L BUN (7-17) mg/dL Creatinine (0.52-1.04) mg/dL Estimated GFR ML/MIN Glucose (74-106) mg/dL Calcium (8.4-10.2) mg/dL Iron 45 (37-170) ug/dL TIBC 204 L (265-462) ug/dL Iron Saturation 22 (20-39) % Ferritin 96.0 (11.1-264) ng/mL Total Bilirubin (0.2-1.3) mg/dL AST (14-36) U/L ALT (0-35) U/L Alkaline Phosphatase (38-126) U/L Serum Total Protein (6.3-8.2) g/dL Albumin (3.5-5.0) g/dL Vitamin B12 < 159 L (239-931) pg/mL Folic Acid 4.42 (2.76 - >20) ng/mL 05/09/25 Range/Units 04:30 WBC (3.98-10.04) x10^3/uL RBC (3.93-5.22) x10^6/uL Hgb (11.2-15.7) g/dL Hct (34.1-44.9) % MCV (79.4-94.8) fL MCH (25.6-32.2) pg MCHC (32.2-35.5) g/dL RDW (11.7-14.4) % Plt Count (182-369) x10^3/uL MPV (9.4-12.3) fL Gran % (34.0-71.1) % Immature Gran % (Auto) (0.001-0.429) % Nucleat RBC Rel Count (0.00-0.2) % Eos # (Auto) (0.04-0.36) x10^3/uL Immature Gran # (Auto) (0.001-0.031) x10^3u/L Absolute Lymphs (auto) (1.18-3.74) x10^3/uL Absolute Monos (auto) (0.24-0.86) x10^3/uL Absolute Nucleated RBC (0.00-0.012) x10^3u/L Lymphocytes % (19.3-51.7) % Monocytes % (4.7-12.5) % Eosinophils % (0.7-5.8) % Basophils % (0.1-1.2) % Absolute Granulocytes (1.56-6.13) x10^3/uL Basophils # (0.01-0.08) x10^3/uL Sodium 135 (135-145) mmol/L Potassium 3.7 (3.5-5.1) mmol/L Chloride 107 (98-107) mmol/L Carbon Dioxide 19 L (22-30) mmol/L Anion Gap 13.2 (5-15) MEQ/L BUN 18 H (7-17) mg/dL Creatinine 1.09 H (0.52-1.04) mg/dL Estimated GFR 52.0 ML/MIN Glucose 96 (74-106) mg/dL Calcium 8.6 (8.4-10.2) mg/dL Iron (37-170) ug/dL TIBC (265-462) ug/dL Iron Saturation (20-39) % Ferritin (11.1-264) ng/mL Total Bilirubin 0.40 (0.2-1.3) mg/dL AST 20 (14-36) U/L ALT 11 (0-35) U/L Alkaline Phosphatase 36 L (38-126) U/L Serum Total Protein 5.8 L (6.3-8.2) g/dL Albumin 3.2 L (3.5-5.0) g/dL Vitamin B12 (239-931) pg/mL Folic Acid (2.76 - >20) ng/mL Micro Results-Entire Visit: Microbiology 05/08/25 08:16 Wound Culture - Preliminary Drainage - Left Lower GRAM NEGATIVE ID AND SENSITIVITY PENDING 05/07/25 19:30 Urine Culture - Final Clean Catch Midstream Escherichia Coli Klebsiella Aerogenes 05/07/25 17:10 Blood Culture - Preliminary Blood 05/07/25 17:10 Blood Culture - Preliminary Blood - Radiology Exams Ordered Rad Exams-Entire Visit: Radiology Procedures Category Date Time Status CHEST 1 VIEW (PORTABLE) Stat Exams 05/07/25 18:27 Completed ECHO W/2D AND DOPPLER [US] Urgent Exams 05/08/25 10:00 Taken LOWER LEG Stat Exams 05/07/25 15:48 Completed VENOUS UNILAT/LIMITED EXTREMIT [US] Stat Exams 05/07/25 15:45 Completed Discharge Exam General Appearance: no apparent distress Neurologic Exam: alert, oriented x 3, cooperative Eye Exam: PERRL Ears, Nose, Throat Exam: normal ENT inspection Neck Exam: JVD Respiratory Exam: normal breath sounds, lungs clear Cardiovascular Exam: irregular Gastrointestinal/Abdomen Exam: soft, normal bowel sounds Pelvic Exam: deferred Rectal Exam: deferred Back Exam: normal inspection Extremity Exam: swelling (RLE - ankle LLE with compression dressing) Skin Exam: normal color Wound Assessment: Skin/Wound Assessment Wound/Incision Assessment Start: 05/08/25 07:47 Text: Status: Active Freq: Q6H Protocol: Document 05/09/25 08:25 DS (Rec: 05/09/25 08:31 DS [id number]) Wound/Incision Assessment LLL (posterior leg/calf area) Wound Assessment Shift Assessment Wound Type Stasis Ulcer Comment wrapped and unable to assess LLL (Anterior) Wound Assessment Shift Assessment Comment wrapped and unable to assess Wound Photo Photo Taken No Final Diagnosis/Problem List - Final Discharge Diagnosis/Problem (1) Cellulitis Current Visit: Yes Status: Chronic Assessment & Plan: Chronic wounds over the medial, lateral, and anterior left jj with surrounding erythema, drainage, and edema. Left leg X-ray negative for acute bony abnormality; venous Doppler negative for DVT. Treated with IV vancomycin and Zosyn during hospitalization. Wound culture: growing a Gram-negative organism; final identification and sensitivities pending at discharge. Podiatry applied compression dressings with clear improvement in pain and swelling. Start oral levofloxacin to provide Gram-negative coverage, based on urine culture susceptibility and clinical response. Podiatry will follow the patient as an outpatient; they will review final wound culture results and adjust antibiotics at that visit if sensitivities suggest a better targeted agent. Maintain leg elevation when resting, avoid prolonged dependent positioning. Keep dressings clean, dry, and intact; follow podiatry instructions on dressing changes. Return for fever, worsening redness or drainage, or new systemic symptoms. [facility] for dressing changes and wound care Code(s): L03.90 - CELLULITIS, UNSPECIFIED (2) Atrial fibrillation Current Visit: Yes Status: Acute Assessment & Plan: New-onset AF identified on admission with HR up to 121 bpm; likely triggered by infection and physiologic stress. Telemetry showed improved rate control (mostly 71950 bpm) with therapy. Echo: mild concentric LVH, EF 55%, severely elevated right atrial pressure; no new systolic dysfunction. Cardiology reassessed on 05/09/25: Patient clarified home regimen of metoprolol succinate 50 mg daily and Lasix [address] Hooker recommended continuing metoprolol succinate 50 mg daily and Lasix 40 mg BID, along with her other home cardiac meds. Eliquis initiated for stroke prophylaxis given [id number]; patient reports she can afford this medication. Cardiology cleared her for discharge with close outpatient follow-up. Continue metoprolol succinate 50 mg once daily. Continue Eliquis as prescribed; strict adherence emphasized. Status Controller on bleeding precautions (melena, hematuria, easy bruising, falls). Follow up with her agricultural crop farm manager promptly after discharge for rhythm and rate management and long-term AF strategy. Code(s): I48.91 - UNSPECIFIED ATRIAL FIBRILLATION (3) HTN (hypertension) Current Visit: Yes Status: Chronic Assessment & Plan: Longstanding HTN, reasonably controlled during admission aside from transient soft pressures with infection and rate control. Continue her home antihypertensive regimen, including metoprolol and Entresto, unless directed otherwise by cardiology or PCP. Encourage home blood pressure monitoring if able and follow up with PCP. Code(s): I10 - ESSENTIAL (PRIMARY) HYPERTENSION (4) Cardiomyopathy Current Visit: Yes Status: Acute Assessment & Plan: History of cardiomyopathy/CHF; BNP at admission 12,300 pg/mL suggesting significant chronic volume/pressure load. Echo: EF 55%, mild concentric LVH, severely elevated right atrial pressuremore consistent with chronic right-sided volume burden than new systolic failure. Edema improved with IV Lasix 20 mg once and continued diuretic therapy. Chest X-ray on 05/09 showed no acute pulmonary edema. Cardiology recommended continuing her home HF regimen (Entresto, metoprolol succinate 50 mg daily, Lasix 40 mg BID). Continue Entresto/Farxiga as prescribed. Continue Lasix 40 mg twice daily. Daily weights at home; report weight gain greater 23 lb in one day or greater than 5 lb in a week, worsening leg swelling, or increased shortness of breath. Moderate sodium intake and follow standard HF diet and fluid guidance. Close HF follow-up with cardiology and PCP. Code(s): I42.9 - CARDIOMYOPATHY, UNSPECIFIED (5) Normocytic anemia Current Visit: Yes Status: Acute Assessment & Plan: Hemoglobin fell from 11 g/dL to 9.6 g/dL and then remained stable, without overt bleeding. Iron studies showed iron saturation at 20%, consistent with iron deficiency. Vitamin B12 level <159 pg/mL, confirming B12 deficiency as an additional medical delivery driver of anemia. No major neurologic deficits reported, but deficiency still clinically significant. Start ferrous sulfate orally 325mg daily Oral cyanocobalamin 2,000 mcg daily PCP to recheck CBC, iron panel, and B12 level in 46 weeks. Further workup and adjustment of therapy as needed based on response. Code(s): D64.9 - ANEMIA, UNSPECIFIED (6) Bilateral leg edema Current Visit: Yes Status: Acute Assessment & Plan: Left > right edema, multifactorial from chronic venous stasis, heart failurerelated volume overload, and active cellulitis. Venous Doppler negative for DVT; X-ray without acute bone pathology. Edema improved with compression, elevation, infection control, and diuretics. Continue Lasix 40 mg BID as above. Maintain leg elevation when possible and adhere to compression/wound recommendations from podiatry. Monitor for sudden worsening swelling, dyspnea, or rapid weight gain. Code(s): R60.0 - LOCALIZED EDEMA (7) Increased anion gap metabolic acidosis Current Visit: Yes Status: Acute Assessment & Plan: Resolved Code(s): E87.29 - OTHER ACIDOSIS (8) HAYDEE (acute kidney injury) Current Visit: Yes Status: Acute Assessment & Plan: Mildly Elevated Creatinine, Unknown Baseline (Stable) Creatinine 1.10 mg/dL on admission, trending slightly to 1.09 mg/dL; no clear HAYDEE pattern. Tolerated diuresis and antibiotics without significant deterioration in kidney function. Avoid nephrotoxins when possible, especially NSAIDs. PCP to recheck basic metabolic panel in the outpatient setting. Code(s): N17.9 - ACUTE KIDNEY FAILURE, UNSPECIFIED (9) UTI (urinary tract infection) Current Visit: Yes Status: Acute Assessment & Plan: UA suspicious for infection; urine culture positive for E. coli and Klebsiella aerogenes, both sensitive to levofloxacin. Adequately covered inpatient by Zosyn and now by levofloxacin. No evidence of urosepsis or obstruction. Continue levofloxacin as prescribed to complete a full course for both the urinary infection and Gram-negative wound coverage. Encourage oral hydration as tolerated (within HF limits). Follow up with PCP if urinary symptoms persist or recur. Code(s): N39.0 - URINARY TRACT INFECTION, SITE NOT SPECIFIED - Discharge Discharge Date: 05/09/25 Disposition: HOME HEALTH SERVICE Condition: Stable Prescriptions: New Apixaban [Eliquis] 5 mg PO BID 30 Days #60 tablet Ferrous Sulfate 325 mg [Feosol 325 mg] 325 mg PO DAILY 30 Days #30 tablet Furosemide 40 mg [Lasix 40 MG] 40 mg PO BID DIURETIC tablet levoFLOXacin [Levofloxacin] 500 mg PO DAILY 10 Days #10 tablet Metoprolol Succinate 50 mg [Toprol Xl 50 MG] 50 mg PO DAILY 30 Days #30 tablet Cyanocobalamin (Vitamin B-12) [Vitamin B-12] 2,000 mcg PO DAILY 30 Days #60 tablet Continue Dapagliflozin Propanediol [Farxiga] 10 mg PO DAILY Sacubitril/Valsartan [Entresto 49 mg-51 mg Tablet] 1 tab PO BID Additional Instructions: [facility] HAS BEEN SET UP FOR YOU. THEY WILL CALL YOU TO ARRANGE A TIME TO COME SEE YOU. THEIR PHONE NUMBER IS [phone] IF YOU NEED ANYTHING PRIOR TO THEIR VISIT TALK WITH INSURANCE COMPANY AND DR. CHAMBERS REGARDING PLAN FOR AFFORDING [employer] WOUND CARE FOR LEFT LOWER LEG: Cleanse left lower leg with betadine. Apply adaptic over wounds. Apply Unna Boot. Wrap with kerlix then coban with moderate compression. Dressing to be changed twice a week by Home Health Nurse. Follow up with: BUSHRA ORELLANA DPM [PODIATRY STAFF, PODIATRY] - 05/15/25 10:00 am CAROL CHAMBERS [CONSULTING PHYSICIAN, CARDIOLOGY] - 05/28/25 4:15 pm BRENDA HOLT NP [Primary Care Provider, UNKNOWN] - Call for Appointment Referral Note: i tried to call office x2 and it goes to answering machine. i left a message for an appt.
--- NOTE | 2025-05-09 15:32 | PCM.CONS ---
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 Consulting Provider: BUSHRA ORELLANA DPM - [facility] History of Present Illness: Ms. Miles is a 79-year-old female with a history of hypertension, cardiomyopathy, chronic back pain, CHF, prior OH, and chronic left lower extremity wounds currently followed at the [facility], last seen approximately three weeks before presentation. She reports missing recent wound appointments due to the of her during . She previously completed a course of doxycycline on April 02 without improvement. She now presents with worsening left lower extremity pain, swelling, purulent drainage, and erythema. She endorses chills but denies chest pain, shortness of breath, or palpitations. She follows with Dr. Estrada as an outpatient. She states her last echocardiogram was about one year ago. On arrival, her heart rate was 121. EKG showed atrial fibrillation with a ventricular rate around 113. Telemetry continues to show atrial fibrillation with heart rates ranging [id number]. Examination reveals open wounds on the medial, lateral, and anterior aspects of the left jj with surrounding erythema, purulence, marked tenderness, and 2+ pitting edema. The right lower extremity has 1+ pitting edema. Venous Doppler of the left leg is preliminarily negative for DVT. Left leg X-ray shows no acute osseous abnormality. Labs are notable for hemoglobin 11, CO? 18 with an anion gap of 17.5, BUN 20, creatinine 1.10 (baseline unknown), BNP 12,300, and a normal initial troponin. She received vancomycin, Zosyn, and Lovenox in the emergency department. Cardiology (Dr. Estrada) recommended repeating an echocardiogram. She is admitted for management of recurrent infected left lower extremity wounds and atrial fibrillation. She reports improvement in left lower extremity pain since the compression dressing was applied. She denies chest pain, dyspnea, palpitations, dizziness, or syncope, though she does feel generally fatigued. She had no fevers overnight. Continue vancomycin and Zosyn while awaiting culture data. Urine culture shows Gram-negative growth; sensitivities are pending. Medications & Allergies Home Medications: Home Medication List Dapagliflozin Propanediol [Farxiga] 10 mg PO DAILY 05/07/25 [History Confirmed 05/07/25] Sacubitril/Valsartan [Entresto 49 mg-51 mg Tablet] 1 tab PO BID 05/07/25 [History Confirmed 05/07/25] Apixaban [Eliquis] 5 mg PO BID 30 Days #60 tablet 05/09/25 [Rx] Cyanocobalamin (Vitamin B-12) [Vitamin B-12] 2,000 mcg PO DAILY 30 Days #60 tablet 05/09/25 [Rx] Ferrous Sulfate 325 mg [Feosol 325 mg] 325 mg PO DAILY 30 Days #30 tablet 05/09/25 [Rx] Furosemide 40 mg [Lasix 40 MG] 40 mg PO BID DIURETIC tablet 05/09/25 [Rx] Metoprolol Succinate 50 mg [Toprol Xl 50 MG] 50 mg PO DAILY 30 Days #30 tablet 05/09/25 [Rx] levoFLOXacin [Levofloxacin] 500 mg PO DAILY 10 Days #10 tablet 05/09/25 [Rx] Allergies/Adverse Reactions: Allergies Allergy/AdvReac Type Severity Reaction Status Date / Time No Known Drug Allergies Allergy Verified 05/07/25 15:02 - Past Medical History Past Medical History: Yes Neurological History: No Pertinent History ENT History: No Pertinent History Cardiac History: Hypertension Respiratory History: No Pertinent History Endocrine Medical History: No Pertinent History Musculoskelatal History: No Pertinent History GI Medical History: No Pertinent History History: No Pertinent History Pyscho-Social History: No Pertinent History Reproductive Disorders: No Pertinent History Comment: swelling legs - Past Surgical History Past Surgical History: Yes Neuro Surgical History: No Pertinent History Cardiac History: No Pertinent History GI Surgical History: No Pertinent History Genitourinary Surgical Hx: No Pertinent History Musculskeletal Surgical Hx: Joint Replacement Female Surgical History: Hysterectomy Other Surgical History: right hip replaced Significant Family History: cancer, diabetes - Social History Smoking Status: Former smoker Exposure to second hand smoke: No Alcohol: None Drug Use: none - Social Determinants of Health Will the patient participate in the screening: Yes Do you worry about a steady place to live?: No Do you have any problems with any of the following?: No known problems In the past 12 months,have you had to go without utilities?: No Have you or anyone in your house had to go without enough: No Transportation Issues: No Has anyone in your support network made you feel unsafe?: No Does the patient want assistance with any of the above?: No Physical Exam - Narrative Narrative Physical Exam: Podiatry Physical Exam Results - Labs Lab/Micro Results: Lab Results-Last 24 Hours 05/08/25 05/08/25 05/09/25 Range/Units 02:15 02:15 04:30 WBC 4.6 (3.98-10.04) x10^3/uL RBC 3.33 L (3.93-5.22) x10^6/uL Hgb 9.6 L (11.2-15.7) g/dL Hct 31.5 L (34.1-44.9) % MCV 94.6 (79.4-94.8) fL MCH 28.8 (25.6-32.2) pg MCHC 30.5 L (32.2-35.5) g/dL RDW 16.2 H (11.7-14.4) % Plt Count 144 L (182-369) x10^3/uL MPV 11.5 (9.4-12.3) fL Gran % 67.5 (34.0-71.1) % Immature Gran % (Auto) 0.7 H (0.001-0.429) % Nucleat RBC Rel Count 0.0 (0.00-0.2) % Eos # (Auto) 0.05 (0.04-0.36) x10^3/uL Immature Gran # (Auto) 0.03 (0.001-0.031) x10^3u/L Absolute Lymphs (auto) 0.83 L (1.18-3.74) x10^3/uL Absolute Monos (auto) 0.56 (0.24-0.86) x10^3/uL Absolute Nucleated RBC 0.00 (0.00-0.012) x10^3u/L Lymphocytes % 18.2 L (19.3-51.7) % Monocytes % 12.3 (4.7-12.5) % Eosinophils % 1.1 (0.7-5.8) % Basophils % 0.2 (0.1-1.2) % Absolute Granulocytes 3.09 (1.56-6.13) x10^3/uL Basophils # 0.01 (0.01-0.08) x10^3/uL Sodium (135-145) mmol/L Potassium (3.5-5.1) mmol/L Chloride (98-107) mmol/L Carbon Dioxide (22-30) mmol/L Anion Gap (5-15) MEQ/L BUN (7-17) mg/dL Creatinine (0.52-1.04) mg/dL Estimated GFR ML/MIN Glucose (74-106) mg/dL Calcium (8.4-10.2) mg/dL Iron 45 (37-170) ug/dL TIBC 204 L (265-462) ug/dL Iron Saturation 22 (20-39) % Ferritin 96.0 (11.1-264) ng/mL Total Bilirubin (0.2-1.3) mg/dL AST (14-36) U/L ALT (0-35) U/L Alkaline Phosphatase (38-126) U/L Serum Total Protein (6.3-8.2) g/dL Albumin (3.5-5.0) g/dL Vitamin B12 < 159 L (239-931) pg/mL Folic Acid 4.42 (2.76 - >20) ng/mL 05/09/25 Range/Units 04:30 WBC (3.98-10.04) x10^3/uL RBC (3.93-5.22) x10^6/uL Hgb (11.2-15.7) g/dL Hct (34.1-44.9) % MCV (79.4-94.8) fL MCH (25.6-32.2) pg MCHC (32.2-35.5) g/dL RDW (11.7-14.4) % Plt Count (182-369) x10^3/uL MPV (9.4-12.3) fL Gran % (34.0-71.1) % Immature Gran % (Auto) (0.001-0.429) % Nucleat RBC Rel Count (0.00-0.2) % Eos # (Auto) (0.04-0.36) x10^3/uL Immature Gran # (Auto) (0.001-0.031) x10^3u/L Absolute Lymphs (auto) (1.18-3.74) x10^3/uL Absolute Monos (auto) (0.24-0.86) x10^3/uL Absolute Nucleated RBC (0.00-0.012) x10^3u/L Lymphocytes % (19.3-51.7) % Monocytes % (4.7-12.5) % Eosinophils % (0.7-5.8) % Basophils % (0.1-1.2) % Absolute Granulocytes (1.56-6.13) x10^3/uL Basophils # (0.01-0.08) x10^3/uL Sodium 135 (135-145) mmol/L Potassium 3.7 (3.5-5.1) mmol/L Chloride 107 (98-107) mmol/L Carbon Dioxide 19 L (22-30) mmol/L Anion Gap 13.2 (5-15) MEQ/L BUN 18 H (7-17) mg/dL Creatinine 1.09 H (0.52-1.04) mg/dL Estimated GFR 52.0 ML/MIN Glucose 96 (74-106) mg/dL Calcium 8.6 (8.4-10.2) mg/dL Iron (37-170) ug/dL TIBC (265-462) ug/dL Iron Saturation (20-39) % Ferritin (11.1-264) ng/mL Total Bilirubin 0.40 (0.2-1.3) mg/dL AST 20 (14-36) U/L ALT 11 (0-35) U/L Alkaline Phosphatase 36 L (38-126) U/L Serum Total Protein 5.8 L (6.3-8.2) g/dL Albumin 3.2 L (3.5-5.0) g/dL Vitamin B12 (239-931) pg/mL Folic Acid (2.76 - >20) ng/mL Microbiology 05/08/25 08:16 Wound Culture - Preliminary Drainage - Left Lower GRAM NEGATIVE ID AND SENSITIVITY PENDING 05/07/25 19:30 Urine Culture - Final Clean Catch Midstream Escherichia Coli Klebsiella Aerogenes 05/07/25 17:10 Blood Culture - Preliminary Blood 05/07/25 17:10 Blood Culture - Preliminary Blood - Radiology Impressions Radiology Exams & Impressions: Radiology Procedures Category Date Time Status CHEST 1 VIEW (PORTABLE) Stat Exams 05/07/25 18:27 Completed ECHO W/2D AND DOPPLER [US] Urgent Exams 05/08/25 10:00 Taken LOWER LEG Stat Exams 05/07/25 15:48 Completed VENOUS UNILAT/LIMITED EXTREMIT [US] Stat Exams 05/07/25 15:45 Completed
--- NOTE | 2025-05-09 15:36 | PCM.NOTE ---
Date and Time: 05/09/25 1536 Subjective Assessment: Doing well without signficant complication at this time Physical Exam - Narrative Narrative Physical Exam: Podiatry Physical Exam Objective Data Vital Signs: Vital Signs - 24 hr Temp Pulse Resp BP Pulse Ox 05/09/25 11:00 98.9 F 92 H 16 129/70 99 05/09/25 07:00 98.4 F 74 18 115/73 95 05/09/25 03:47 99 05/09/25 03:00 98.9 F 81 16 117/67 92 L 05/08/25 23:00 99.8 F 96 H 16 107/63 93 L 05/08/25 20:00 84 05/08/25 19:00 99.9 F 84 17 123/68 99 Pain Assessment - Last Documented Pain Intensity 2 Pain Scale Used 0-10 Pain Scale Intake and Output: Intake & Output 05/07/25 05/08/25 05/09/25 05/10/25 11:59 11:59 11:59 11:59 Intake Total 720 940 480 Output Total 400 550 Balance 320 390 480 Weight 77.2 kg 80.1 kg Lab Results: Lab Results-Last 24 Hours 05/08/25 05/08/25 05/09/25 Range/Units 02:15 02:15 04:30 WBC 4.6 (3.98-10.04) x10^3/uL RBC 3.33 L (3.93-5.22) x10^6/uL Hgb 9.6 L (11.2-15.7) g/dL Hct 31.5 L (34.1-44.9) % MCV 94.6 (79.4-94.8) fL MCH 28.8 (25.6-32.2) pg MCHC 30.5 L (32.2-35.5) g/dL RDW 16.2 H (11.7-14.4) % Plt Count 144 L (182-369) x10^3/uL MPV 11.5 (9.4-12.3) fL Gran % 67.5 (34.0-71.1) % Immature Gran % (Auto) 0.7 H (0.001-0.429) % Nucleat RBC Rel Count 0.0 (0.00-0.2) % Eos # (Auto) 0.05 (0.04-0.36) x10^3/uL Immature Gran # (Auto) 0.03 (0.001-0.031) x10^3u/L Absolute Lymphs (auto) 0.83 L (1.18-3.74) x10^3/uL Absolute Monos (auto) 0.56 (0.24-0.86) x10^3/uL Absolute Nucleated RBC 0.00 (0.00-0.012) x10^3u/L Lymphocytes % 18.2 L (19.3-51.7) % Monocytes % 12.3 (4.7-12.5) % Eosinophils % 1.1 (0.7-5.8) % Basophils % 0.2 (0.1-1.2) % Absolute Granulocytes 3.09 (1.56-6.13) x10^3/uL Basophils # 0.01 (0.01-0.08) x10^3/uL Sodium (135-145) mmol/L Potassium (3.5-5.1) mmol/L Chloride (98-107) mmol/L Carbon Dioxide (22-30) mmol/L Anion Gap (5-15) MEQ/L BUN (7-17) mg/dL Creatinine (0.52-1.04) mg/dL Estimated GFR ML/MIN Glucose (74-106) mg/dL Calcium (8.4-10.2) mg/dL Iron 45 (37-170) ug/dL TIBC 204 L (265-462) ug/dL Iron Saturation 22 (20-39) % Ferritin 96.0 (11.1-264) ng/mL Total Bilirubin (0.2-1.3) mg/dL AST (14-36) U/L ALT (0-35) U/L Alkaline Phosphatase (38-126) U/L Serum Total Protein (6.3-8.2) g/dL Albumin (3.5-5.0) g/dL Vitamin B12 < 159 L (239-931) pg/mL Folic Acid 4.42 (2.76 - >20) ng/mL 05/09/25 Range/Units 04:30 WBC (3.98-10.04) x10^3/uL RBC (3.93-5.22) x10^6/uL Hgb (11.2-15.7) g/dL Hct (34.1-44.9) % MCV (79.4-94.8) fL MCH (25.6-32.2) pg MCHC (32.2-35.5) g/dL RDW (11.7-14.4) % Plt Count (182-369) x10^3/uL MPV (9.4-12.3) fL Gran % (34.0-71.1) % Immature Gran % (Auto) (0.001-0.429) % Nucleat RBC Rel Count (0.00-0.2) % Eos # (Auto) (0.04-0.36) x10^3/uL Immature Gran # (Auto) (0.001-0.031) x10^3u/L Absolute Lymphs (auto) (1.18-3.74) x10^3/uL Absolute Monos (auto) (0.24-0.86) x10^3/uL Absolute Nucleated RBC (0.00-0.012) x10^3u/L Lymphocytes % (19.3-51.7) % Monocytes % (4.7-12.5) % Eosinophils % (0.7-5.8) % Basophils % (0.1-1.2) % Absolute Granulocytes (1.56-6.13) x10^3/uL Basophils # (0.01-0.08) x10^3/uL Sodium 135 (135-145) mmol/L Potassium 3.7 (3.5-5.1) mmol/L Chloride 107 (98-107) mmol/L Carbon Dioxide 19 L (22-30) mmol/L Anion Gap 13.2 (5-15) MEQ/L BUN 18 H (7-17) mg/dL Creatinine 1.09 H (0.52-1.04) mg/dL Estimated GFR 52.0 ML/MIN Glucose 96 (74-106) mg/dL Calcium 8.6 (8.4-10.2) mg/dL Iron (37-170) ug/dL TIBC (265-462) ug/dL Iron Saturation (20-39) % Ferritin (11.1-264) ng/mL Total Bilirubin 0.40 (0.2-1.3) mg/dL AST 20 (14-36) U/L ALT 11 (0-35) U/L Alkaline Phosphatase 36 L (38-126) U/L Serum Total Protein 5.8 L (6.3-8.2) g/dL Albumin 3.2 L (3.5-5.0) g/dL Vitamin B12 (239-931) pg/mL Folic Acid (2.76 - >20) ng/mL Radiology Exams: Radiology Procedures Category Date Time Status CHEST 1 VIEW (PORTABLE) Stat Exams 05/07/25 18:27 Completed ECHO W/2D AND DOPPLER [US] Urgent Exams 05/08/25 10:00 Taken LOWER LEG Stat Exams 05/07/25 15:48 Completed VENOUS UNILAT/LIMITED EXTREMIT [US] Stat Exams 05/07/25 15:45 Completed Medications: Medications Generic Name Dose Route Start Last Admin Trade Name Freq PRN Reason Stop Dose Admin Acetaminophen 650 mg 05/07/25 18:27 Acetaminophen 325 Mg Tablet PO 06/06/25 18:26 Q4H PRN PRN PAIN, FEVER, HEADACHE Apixaban 5 mg 05/08/25 10:00 05/09/25 09:23 Apixaban 2.5 Mg Tablet PO 06/07/25 09:59 5 mg BID JOSIAH Administration Cyanocobalamin 2,000 mcg 05/09/25 13:00 05/09/25 12:57 Cyanocobalamin 500 Mcg Tablet PO 06/08/25 12:59 2,000 mcg DAILY JOSIAH Administration Device 1 05/10/25 09:30 Therapuetic Drug Level Monitor Each IJ 05/10/25 09:31 1XONLY ONE Ferrous Sulfate 325 mg 05/09/25 10:00 05/09/25 09:24 Ferrous Sulfate 325 Mg Tablet PO 06/08/25 09:59 325 mg DAILY JOSIAH Administration Furosemide 40 mg 05/09/25 17:00 Furosemide 40 Mg Tablet PO 06/08/25 16:59 BID DIURETIC JOSIAH Piperacillin Sod/Tazobactam 100 mls @ 200 mls/hr 05/08/25 08:00 05/09/25 11:33 Sod 2.25 gm/ Sodium Chloride IV 06/07/25 07:59 200 mls/hr Q6HT JOSIAH Administration Vancomycin HCl 1 gm in 200 mls @ 125 mls/hr 05/08/25 11:00 05/09/25 09:33 Vancomycin 1 Gram/200 Ml Bag IV 06/07/25 10:59 125 mls/hr DAILY JOSIAH Administration Metoprolol Succinate 37.5 mg 05/09/25 12:00 05/09/25 12:07 Metoprolol Succinate 25 Mg Xl Tab PO 06/08/25 11:59 37.5 mg DAILY JOSIAH Administration Ondansetron HCl 4 mg 05/07/25 18:27 Ondansetron Hcl 4 Mg/2 Ml Vial IV 06/06/25 18:26 Q6H PRN PRN NAUSEA/VOMITING Farxiga 10mg Tablet 1 each 05/08/25 12:00 05/09/25 09:23 PO 06/07/25 11:59 1 each DAILY JOSIAH Administration Sacubitril/Valsartan 1 tablet 05/07/25 22:00 05/09/25 09:24 Sacubitril/Valsartan 1 Tablet Tablet PO 06/06/25 21:59 1 tablet BID JOSIAH Administration Discontinued Medications Generic Name Dose Route Start Last Admin Trade Name Freq PRN Reason Stop Dose Admin Cyanocobalamin 1,000 mcg 05/10/25 10:00 Cyanocobalamin 500 Mcg Tablet PO 06/09/25 09:59 DAILY JOSIAH Enoxaparin Sodium 60 mg 05/07/25 16:54 05/07/25 17:14 Enoxaparin Sodium 60 Mg/0.6 Ml Syringe SQ 05/07/25 16:55 60 mg STAT ONE Administration Enoxaparin Sodium Confirm 05/07/25 17:05 Enoxaparin Sodium 80 Mg/0.8 Ml Syringe Administered 05/07/25 17:06 Dose 80 mg SQ .STK-MED ONE Enoxaparin Sodium 40 mg 05/08/25 10:00 Enoxaparin Sodium 40 Mg/0.4 Ml Syringe SQ 06/07/25 09:59 DAILY JOSIAH Furosemide 20 mg 05/09/25 22:35 Furosemide 20 Mg/Vial IV 05/09/25 22:36 1XONLY ONE Furosemide 20 mg 05/09/25 06:00 05/09/25 05:36 Furosemide 20 Mg/Vial IV 05/09/25 06:01 20 mg 1XONLY ONE Administration Vancomycin HCl 1 gm in 200 mls @ 125 mls/hr 05/07/25 16:53 05/07/25 20:14 Vancomycin 1 Gram/200 Ml Bag IV 05/07/25 18:28 125 mls/hr STAT ONE Administration Piperacillin Sod/Tazobactam 100 mls @ 200 mls/hr 05/07/25 16:53 05/07/25 17:14 Sod 3.375 gm/ Sodium Chloride IV 05/07/25 17:22 200 mls/hr STAT STA 200 mls/hr Administration Sodium Chloride Confirm 05/07/25 17:05 Sodium Chloride 0.9% Administered 05/07/25 17:06 Dose 100 mls @ ud .ROUTE .STK-MED ONE Vancomycin HCl 1 gm in 200 mls @ 125 mls/hr 05/08/25 10:00 05/08/25 11:31 Vancomycin 1 Gram/200 Ml Bag IV 06/07/25 09:59 Not Given DAILY JOSIAH Ketorolac Tromethamine 30 mg 05/07/25 15:46 05/07/25 15:55 Ketorolac Tromethamine 30 Mg/Ml Inj IV 05/07/25 15:47 30 mg STAT ONE Administration Ketorolac Tromethamine Confirm 05/07/25 15:52 Ketorolac Tromethamine 30 Mg/Ml Inj Administered 05/07/25 15:53 Dose 30 mg .ROUTE .STK-MED ONE Metoprolol Tartrate 25 mg 05/07/25 18:27 05/08/25 11:19 Metoprolol Tartrate 25 Mg Tab PO 06/06/25 18:26 Not Given BID JOSIAH Metoprolol Tartrate 12.5 mg 05/08/25 13:29 05/09/25 08:09 Metoprolol Tartrate 25 Mg Tab PO 06/06/25 18:26 12.5 mg BID JOSIAH Administration Miscellaneous Information 1 each 05/08/25 08:00 Medication Intervention 1 Each Each MC 06/07/25 07:59 .RN TO CHECK JOSIAH Non-Formulary Medication 1 each 05/07/25 18:30 Pharmacy Dose Request: Vancomycin 1 Each IV 06/06/25 18:29 ONCALLTOOR JOSIAH Non-Formulary Medication 1 each 05/07/25 18:27 Pharmacy Dosing Request MC 05/07/25 18:28 STAT ONE Piperacillin Sod/Tazobactam Sod Confirm 05/07/25 17:05 Piperacillin/Tazobactam Sodium 3.375 Gm Vial Administered 05/07/25 17:06 Dose 3.375 gm IV .STK-MED ONE Multi-Disciplinary Progress Notes: Multi-Disciplinary Progress Notes 05/09/25 12:55 Case Management Note by Deana Sousa S/W PATIENT- SHE CONTINUE TO PLAN TO DC HOME AT TIME OF DC. WE DISCUSSED HHC TO ASSIST WITH [employer] CHANGES. PATIENT IS AGREEABLE. WE DISCUSSED PROVIDERS. REFERRAL SENT TO [facility]. PATIENT DENIES ANY OTHER NEEDS. S/W BENJAMIN NÚÑEZ $[id number]- PATIENT NOTIFIED. PATIENT AWARE OF THE ALTERNATIVE OF LOVENOX AND COUMADIN HER WAS ON THIS AT ONE TIME. SHE IS NOT INTERESTED IN THAT OPTION AT THIS TIME. SHE REPORTS SHE IS SWITCHING TO A NEW RX PLAN AT THE BEGINNING OF THE YEAR AND WILL SPEAK WITH HER INSURANCE PROVIDER ABOUT COVERAGE AFTER THE FIRST OF THE YEAR AND IF NEEDED S/W DR CHAMBERS ABOUT OPTIONS. SHE REPORTS SHE HAS THE MONEY TO FILL HER MEDICATION TODAY. PATIENT HAS A FRIEND THAT WILL BE TAKING HER HOME AND STATED SHE WOULD MAKE SURE SHE GOT SETTLED IN AT HOME. Initialized on 05/09/25 12:55 - END OF NOTE 05/09/25 12:52 Case Management Note by Deana Sousa Addendum entered by Deana Sousa 05/09/25 13:08: [facility] HAS ACCEPTED Original Note: REFERRAL EMAILED TO [facility]. THEY WILL NEED NOTIFIED AT TIME OF DC AT [phone]. THEY WILL NEED FAXED THE DC INSTRUCTIONS, DC MED LIST AND DC SUMMARY TO [phone] Initialized on 05/09/25 12:52 - END OF NOTE 05/08/25 22:07 Radiology Note by JAIME KELLER TRANSTHORACIC ECHOCARDIOGRAM 05/08/2025: 1. Moderately dilated left atrium. Other chamber sizes appear normal. 2. Mild to moderate concentric left ventricular hypertrophy. 3. Normal left ventricular systolic function with an estimated LVEF 55%. Motion of the interventricular septum is suggestive of an underlying bundle branch block. Other wall segments appear to contract normally. 4. Unable to determine the grade of diastolic dysfunction due to the patient's underlying atrial fibrillation. 5. Normal right ventricular systolic function. 6. Mildly dilated ascending thoracic aorta. 7. Mild aortic sclerosis without stenosis. 8. Doppler: Mild mitral and tricuspid regurgitation, trace aortic regurgitation. 9. Moderate pulmonary hypertension with an estimated PA systolic pressure 52 mmHg. 10. Severely elevated right atrial pressure (15 mmHg). 11. No pericardial effusion. Jaime Keller MD [facility] Initialized on 05/08/25 22:07 - END OF NOTE Assessment/Plan (1) HAYDEE (acute kidney injury) Status: Acute Code(s): N17.9 - ACUTE KIDNEY FAILURE, UNSPECIFIED (2) Atrial fibrillation Status: Acute Code(s): I48.91 - UNSPECIFIED ATRIAL FIBRILLATION (3) Bilateral leg edema Status: Acute Code(s): R60.0 - LOCALIZED EDEMA (4) Leg pain Status: Acute (5) UTI (urinary tract infection) Status: Acute Code(s): N39.0 - URINARY TRACT INFECTION, SITE NOT SPECIFIED (6) Cellulitis Status: Chronic Assessment & Plan: Patient examination and evaluation Dopplers reviewed and discussed with patient- negative Culture obtained to right leg psterior wound with draiange Continue with compression therapy will follow with you and outpatient on d/c Ok to d/c with levaquin PO will monitor cultures. Code(s): L03.90 - CELLULITIS, UNSPECIFIED
[2025-05-09 16:13] VITALS: BP 119/69; PULSE 82; TEMP 98.6; O2SAT 98
[2025-05-09] MEDS ORDERED: Lasix 40 MG PO SCH (17:00)
[2025-05-09] MEDS ORDERED: Lasix 20 MG/2 ML IV ONE (22:35)
[2025-05-10] MEDS ORDERED: TROUGH DRUG LEVELS IJ ONE (09:30)
[2025-05-10] MEDS ORDERED: Vitamin B-12 500 MCG PO SCH (10:00)
== END 2025-05-09 17:20 | disposition home health service (06) ==
LOC: ED 14:37 → MED SURG 17:31
PROVIDERS: ADMIT Internal Medicine; ATTEND Internal Medicine
DX: L03.116 Cellulitis of left lower limb (principal); I48.91 Unspecified atrial fibrillation; I11.0 Hypertensive heart disease with heart failure; I50.31 Acute diastolic (congestive) heart failure; I25.2 Old myocardial infarction; R00.0 Tachycardia, unspecified; R60.0 Localized edema; N39.0 Urinary tract infection, site not specified; B96.20 Unspecified Escherichia coli [E. coli] as the cause of diseases classified elsewhere; I42.9 Cardiomyopathy, unspecified; D64.9 Anemia, unspecified; E87.29 Other acidosis; N17.9 Acute kidney failure, unspecified; Z79.899 Other long term (current) drug therapy
CPT/HCPCS: 36415; 71045; 73590; 80053; 81001; 82607; 82728; 82746; 83540; 83550; 83735; 83880; 84443; 84484; 85025; 87040; 87070; 87077; 87086; 87186; 93268; 93306; 93971; 96374; 99285; G0378; Q3014